=== PATIENT | female | born 2000 | race Caucasian/White ===

== ENCOUNTER 2021-07-05 20:55 | Outpatient (CLI) | payer OTHER, SELFPAY ==
[2021-07-05 21:00] VITALS: BP 108/67; PULSE 78; RESP 18; TEMP 36.9; O2SAT 100; BMI 25.7
[2021-07-05 21:22] LABS: Microscopic, Urine URINE MICROSCOPIC (MICROSCOPIC)
[2021-07-05 21:26] LABS: Appearance,Urine CLEAR (Clear); Bilirubin,Urine Negative (Negative); Blood, Urine Negative (Negative); Color,Urine YELLOW (Yellow); Glucose,Urine (UA) Negative (Negative); Ketones,Urine TRACE (Negative); Leukocyte Esterase,Urine 3+ (Negative); Nitrate,Urine Negative (Negative); PH,Urine 7.5 (5.0-8.5); Protein,Urine Negative (Negative); Urobilinogen,Urine 0.2 EU/dl (0.2)
[2021-07-05 21:34] LABS: Fetal Membrane Rupture (Rapid) Negative (Negative)
[2021-07-05 21:41] LABS: Amphetamine/Metha Screen,Urine Negative ng/ml (<1000); Benzodiazepines Screen,Urine Negative ng/ml (<200)
[2021-07-05 21:42] LABS: Barbiturates Screen,Urine Negative ng/ml (<200)
[2021-07-05 21:45] LABS: Cannabinoid Screen,Urine Negative ng/ml (<50)
[2021-07-05 21:46] LABS: Cocaine Screen,Urine Negative ng/ml (<300); Methadone Screen,Urine Negative ng/ml (<300)
[2021-07-05 21:49] LABS: Opiate Screen,Urine Negative ng/ml (<300); Phencyclidine Screen,Urine Negative ng/ml (<25)
[2021-07-05 21:50] LABS: Amorphous Sediment,Urine 1+ /lpf; Bacteria,Urine 1+ /lpf; Mucus,Urine 1+ /lpf; WBC,Urine 20-50 #/hpf (0-3)
== END 2021-07-05 22:20 | disposition home or self-care (01) ==
LOC: OBOUT 20:57 → OB 20:58
PROVIDERS: PCP Obstetrics & Gynecology; Visit Provider Nurse Practitioner Obstetrics & Gynecology
DX: O47.03 False labor before 37 completed weeks of gestation, third trimester (principal); Z3A.36 36 weeks gestation of pregnancy
CPT/HCPCS: 59025; 80305; 81001; 84112; 87086; 96360

== ENCOUNTER 2021-07-22 16:54 | Inpatient (IN) | payer OTHER, SELFPAY ==
[2021-07-22 15:25] VITALS: BMI 31.4
[2021-07-22 15:57] LABS: Coronavirus 19, PCR Not Detected (NotDetected); Influenza A, PCR Not Detected (NotDetected); Influenza B, PCR Not Detected (NotDetected)
[2021-07-22 16:00] LABS: Basophils # 0.1 K/mm3 (0-0.2); Eosinophils # 0.1 K/mm3 (0.0-0.4); Eosinophils % 0.7 % (0.1-12.0); Hematocrit 31.2 % (37.0-47.0); Hemoglobin 10.4 g/dL (12.2-16.2); Lymphocytes # 1.5 K/mm3 (0.7-4.5); Lymphocytes % 13.9 % (10-50); Mean Corpuscular HGB Conc 33.4 g/dL (31.8-35.4); Mean Corpuscular Hemoglobin 27.2 pg (27.0-31.2); Mean Corpuscular Volume 81.4 fl (81-99); Mean Platelet Volume 10.8 fl (7.4-10.4); Monocytes # 0.5 K/mm3 (0.1-1.0); Monocytes % 4.3 % (1.7-9.3); Neutrophils # 8.9 K/mm3 (1.8-7.8); Neutrophils % 80.1 % (37.0-80.0); Platelet Count 211 K/mm3 (142-424); Red Blood Count 3.83 M/mm3 (4.20-5.40); Red Cell Distribution Width 16.3 % (11.5-17.5); White Blood Count 11.1 K/mm3 (4.8-10.8)
[2021-07-22 16:23] LABS: Microscopic, Urine URINE MICROSCOPIC (MICROSCOPIC)
[2021-07-22 16:27] VITALS: BP 119/76; PULSE 93; RESP 18; TEMP 36.7; O2SAT 97; BMI 31.4
[2021-07-22 17:09] LABS: Appearance,Urine CLOUDY (Clear); Bilirubin,Urine Negative (Negative); Blood, Urine 3+ (Negative); Color,Urine YELLOW (Yellow); Glucose,Urine (UA) Negative (Negative); Ketones,Urine Negative (Negative); Leukocyte Esterase,Urine 3+ (Negative); Nitrate,Urine Negative (Negative); PH,Urine 7.5 (5.0-8.5); Protein,Urine Negative (Negative)
[2021-07-22 17:38] LABS: Amphetamine/Metha Screen,Urine Negative ng/ml (<1000); Barbiturates Screen,Urine Negative ng/ml (<200)
[2021-07-22 17:39] LABS: Benzodiazepines Screen,Urine Negative ng/ml (<200)
[2021-07-22 17:40] LABS: Cannabinoid Screen,Urine Negative ng/ml (<50); Cocaine Screen,Urine Negative ng/ml (<300)
[2021-07-22 17:41] LABS: Methadone Screen,Urine Negative ng/ml (<300); Opiate Screen,Urine Negative ng/ml (<300)
[2021-07-22 17:42] LABS: Phencyclidine Screen,Urine Negative ng/ml (<25)
[2021-07-22 17:47] LABS: Bacteria,Urine 2+ /lpf; WBC,Urine TNTC #/hpf (0-3)
--- NOTE | 2021-07-22 17:49 | HMH.ANESCL ---
[facility] Anesthesia Checklist - Patient Identification Patient Identification: Arm Band - Structural Data Admitted From: Home Planned Operative Procedure/s: Labor epidural Consent for Planned Operative Procedure(s) Verified: Yes - NPO Status Verified Time NPO: 00:00 - Airway Assessment C-Spine Mobility Assessed: Yes TMJ Mobility Assessed: Yes Dentition: Good Dentition - Neurological Assessment Level of Consciousness: Awake Hx Seizures: No Numbness or tingling in extremities: No - Anesthesia Plan Anesthesia Risk discussed: Yes Anesthesia Plan: Verified ASA Class: I Anesthesia Type: Epidural [facility] History I have reviewed the patient's past medical history: Yes *Have you ever received a pneumonia vaccine?: No *Have you received a flu vaccine this season?: Yes Anesthesia experience/problems:: None Other Surgeries: No: - *Social History Smoking Status: Never smoker Alcohol Intake: never Substance Use Type: denies use *Occupational Status:: unemployed *Travel in the last 8 weeks: None Family Hx:: Unable to obtain Para: 1
--- NOTE | 2021-07-22 18:47 | HMH.HP ---
*Admission Date: 07/22/21 *Chief complaint: active labor *History of present illness: This 21-year-old 2, para 1, Ab0 white female had care in [facility] and was in the local area at 38-5/7 weeks when she began having regular contractions and a 'bloody show.' She presented to labor and delivery where her records from [facility] were obtained. Her first resulted in a full-term vaginal delivery without complications. This has also been without complications. Her toxicology screen is negative. Her Covid screen is also negative, although she has not been vaccinated. On admission her contractions were mild but regular. Her cervix was 5 cm, completely effaced, with the presenting vertex at -2 station. She stated that her last exam was reported at 2 cm. She has been admitted. Her admission labs are all normal. [facility] History Medical History: Denies:: Seizures *Have you ever received a pneumonia vaccine?: No *Have you received a flu vaccine this season?: Yes Anesthesia experience/problems:: None Other Surgeries: Yes: No Previous Surgery (None). 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 (1 normal spontaneous vaginal delivery) Para: 1 Review of Systems - Review of Systems Review of systems:: pertinent systems reviewed and negative unless documented below (All normal) Meds Allergies Allergy/AdvReac Type Severity Reaction Status Date / Time No Known Allergies Allergy Verified 07/05/21 21:02 Exam Vital signs and Labs for Last 24 Hours: Temp Pulse Resp BP Pulse Ox 98.0 F 93 H 18 119/76 97 07/22/21 16:27 07/22/21 16:27 07/22/21 16:27 07/22/21 16:27 07/22/21 16:27 Laboratory Results - last 24 hr 07/22/21 11:20: Urine Color Yellow, Urine Appearance Cloudy, Urine pH 7.5, Ur Specific [place] 1.010, Urine Protein Negative, Urine Glucose (UA) Negative, Urine Ketones Negative, Urine Blood 3+, Urine Nitrate Negative, Urine Bilirubin Negative, Urine Urobilinogen 1.0, Ur Leukocyte Esterase 3+ A, Urine RBC 5-10, Urine WBC Tntc, Ur Squamous Epith Cells 10-20, Urine Bacteria 2+ 07/22/21 11:20: Urine Opiates Screen Negative, Urine Methadone Screen Negative, Ur Barbituates Screen Negative, Ur Phencyclidine Scrn Negative, Ur Amphetamines Screen Negative, U Benzodiazepines Scrn Negative, Urine Cocaine Screen Negative, U Marijuana (THC) Screen Negative 07/22/21 15:50: WBC 11.1 H, RBC 3.83 L, Hgb 10.4 L, Hct 31.2 L, MCV 81.4, MCH 27.2, MCHC 33.4, RDW 16.3, Plt Count 211, MPV 10.8 H, Neut % (Auto) 80.1 H, Lymph % (Auto) 13.9, [place] % (Auto) 4.3, Eos % (Auto) 0.7, Baso % (Auto) 1.0, Neut # (Auto) 8.9 H, Lymph # (Auto) 1.5, [place] # (Auto) 0.5, Eos # (Auto) 0.1, Baso # (Auto) 0.1 07/22/21 15:50: SARS-CoV-2 (PCR) Not detected, Influenza A Untype (PCR) Not detected, Influenza Type B (PCR) Not detected I & O for Last 24 hours: Intake & Output 07/20/21 07/21/21 07/22/21 07/23/21 11:59 11:59 11:59 11:59 Weight 140 lb - *Routine HEENT Exam Head: Present: normocephalic Eye: Present: EOMI ENT: Present: mucous membranes moist (Normal) - *Routine Respiratory Exam Present: accessory muscle use, CTA bilaterally - *Routine Cardiovascular Exam Present: RRR - *Routine Abdominal Exam Present: soft, normoactive bowel sounds. Absent: tenderness - *Routine Rectal Exam Rectal:: normal sphincter tone - *Routine Genitalia Exam Genitalia:: normal female, deferred Comment:: Cervix 5 cm, completely effaced, presenting vertex at -2 station. Bag of water intact. - *Routine Extremities Exam Absent: cyanosis, clubbing, edema - *Routine Skin Exam Present: warm. Absent: rash - *Routine Neurological Exam Present: alert, oriented X3, normal reflexes
--- NOTE | 2021-07-22 18:59 | P.PN_ITS ---
Internal Medicine - PN: Subj *Date: 07/22/21 *Time: 18:59 (Epidural is now in situ. Cervix is 7 cm, completely effaced, p resenting vertex at -2 station. Amniotomy revealed minimal fluid, and an internal monitor has been placed. The fetus appears to be doing well. IV Pitocin augmentation will be begun. Vaginal delivery anticipated.) Exam Vital signs and Labs for Last 24 Hours: Temp Pulse Resp BP Pulse Ox 98.0 F 93 H 18 119/76 97 07/22/21 16:27 07/22/21 16:27 07/22/21 16:27 07/22/21 16:27 07/22/21 16:27 Laboratory Results - last 24 hr 07/22/21 11:20: Urine Color Yellow, Urine Appearance Cloudy, Urine pH 7.5, Ur Specific [place] 1.010, Urine Protein Negative, Urine Glucose (UA) Negative, Urine Ketones Negative, Urine Blood 3+, Urine Nitrate Negative, Urine Bilirubin Negative, Urine Urobilinogen 1.0, Ur Leukocyte Esterase 3+ A, Urine RBC 5-10, Urine WBC Tntc, Ur Squamous Epith Cells 10-20, Urine Bacteria 2+ 07/22/21 11:20: Urine Opiates Screen Negative, Urine Methadone Screen Negative, Ur Barbituates Screen Negative, Ur Phencyclidine Scrn Negative, Ur Amphetamines Screen Negative, U Benzodiazepines Scrn Negative, Urine Cocaine Screen Negative, U Marijuana (THC) Screen Negative 07/22/21 15:50: WBC 11.1 H, RBC 3.83 L, Hgb 10.4 L, Hct 31.2 L, MCV 81.4, MCH 27.2, MCHC 33.4, RDW 16.3, Plt Count 211, MPV 10.8 H, Neut % (Auto) 80.1 H, Lymph % (Auto) 13.9, [place] % (Auto) 4.3, Eos % (Auto) 0.7, Baso % (Auto) 1.0, Neut # (Auto) 8.9 H, Lymph # (Auto) 1.5, [place] # (Auto) 0.5, Eos # (Auto) 0.1, Baso # (Auto) 0.1 07/22/21 15:50: SARS-CoV-2 (PCR) Not detected, Influenza A Untype (PCR) Not detected, Influenza Type B (PCR) Not detected 07/22/21 15:50: Blood Type B Positive, Antibody Screen Negative I & O for Last 24 hours: Intake & Output 07/20/21 07/21/21 07/22/21 07/23/21 11:59 11:59 11:59 11:59 Weight 140 lb Assessment and Plan (1) Status: Acute Category: Medical Code(s): Z34.90 - Encounter for supervision of normal , unspecified, unspecified trimester
[2021-07-22 19:31] VITALS: BP 125/74; PULSE 91; RESP 17; TEMP 36.8; O2SAT 99
[2021-07-22 20:49] VITALS: BP 132/73; PULSE 81; RESP 18; TEMP 36.8; O2SAT 99
--- NOTE | 2021-07-22 22:16 | HMH.DN ---
- Delivery Note Delivery Date:: 07/22/21 Delivery Time:: 22:09 Anesthesia Type: Epidural Was labor medically induced?: Yes Induction method: per pitocin protocol Gestational age (weeks): 38 (38 5/7 weeks presented in active labor) delivered prior to 39 weeks?: Yes Justification for early elective delivery:: Active Labor Gender: Male at 1 minute: 9 at 5 minutes: 9 Suction Catheter Type: Julian AF:: clear Delivery Procedure:: This 21-year-old 2, now para 2, Ab0 white female who had care in [facility] presented to labor and delivery in active labor at 38-5/7 weeks. At the time of admission her cervix was 5 cm dilated. She received a labor epidural, and was ultimately augmented with intravenous Pitocin. An amniotomy revealed a small amount of clear fluid, and an internal monitor was applied. She went steadily to completion and delivered spontaneously, without an episiotomy, at 2209. There was no nuchal cord, nor was there any meconium. The baby's nasal and oropharynx were bulb suctioned, and the baby cried spontaneously on the perineum, as was delivered. The cord was clamped and cut, 3 vessels were noted to be within the cord, and cord blood was obtained. The baby was handed into the arms of the attending RN, who assigned Apgars of 9 at 1 minute and 9 at 5 minutes to this male , weight in length pending. The placenta delivered spontaneously, intact, at 2211. The uterus was inspected, and was felt to be clean, and was involuting well, with IV Pitocin running. There were no lacerations. The rectovaginal septum was intact at the close of the procedure. The sponge and needle count was correct. The estimated blood loss was 350 cc. The patient tolerated the procedure well, and is recovering in good condition. Her blood type is Rh+. Rubella titer is immune. She plans to breast-feed. Placental Delivery Description: Spontaneous (intact)
[2021-07-22 23:31] VITALS: BP 120/77; PULSE 103; RESP 17; TEMP 37; O2SAT 99
[2021-07-23 04:01] VITALS: BP 138/78; PULSE 90; RESP 18; TEMP 36.9; O2SAT 99
[2021-07-23 08:00] VITALS: BP 111/68; PULSE 86; RESP 18; TEMP 37.2; O2SAT 99
[2021-07-23 08:57] LABS: Hematocrit 27.9 % (37.0-47.0)
[2021-07-23 09:08] LABS: Hemoglobin 9.1 g/dL (12.2-16.2)
--- NOTE | 2021-07-23 10:35 | HMH.ACPN2 ---
Internal Medicine - PN: Subj *Date: 07/23/21 *Time: 10:35 (This is day #1. The patient is afebrile. Vital signs stable. Abdomen soft. Lochia normal. Uterine fundus involuting well. Breast-feeding well. Hemoglobin 9.1 g, but clinically stable. Impression: Stable.) Exam Vital signs and Labs for Last 24 Hours: Temp Pulse Resp BP Pulse Ox 98.5 F 90 18 138/78 99 07/23/21 04:01 07/23/21 04:01 07/23/21 04:01 07/23/21 04:01 07/23/21 04:01 Laboratory Results - last 24 hr 07/22/21 11:20: Urine Color Yellow, Urine Appearance Cloudy, Urine pH 7.5, Ur Specific [place] 1.010, Urine Protein Negative, Urine Glucose (UA) Negative, Urine Ketones Negative, Urine Blood 3+, Urine Nitrate Negative, Urine Bilirubin Negative, Urine Urobilinogen 1.0, Ur Leukocyte Esterase 3+ A, Urine RBC 5-10, Urine WBC Tntc, Ur Squamous Epith Cells 10-20, Urine Bacteria 2+ 07/22/21 11:20: Urine Opiates Screen Negative, Urine Methadone Screen Negative, Ur Barbituates Screen Negative, Ur Phencyclidine Scrn Negative, Ur Amphetamines Screen Negative, U Benzodiazepines Scrn Negative, Urine Cocaine Screen Negative, U Marijuana (THC) Screen Negative 07/22/21 15:50: WBC 11.1 H, RBC 3.83 L, Hgb 10.4 L, Hct 31.2 L, MCV 81.4, MCH 27.2, MCHC 33.4, RDW 16.3, Plt Count 211, MPV 10.8 H, Neut % (Auto) 80.1 H, Lymph % (Auto) 13.9, [place] % (Auto) 4.3, Eos % (Auto) 0.7, Baso % (Auto) 1.0, Neut # (Auto) 8.9 H, Lymph # (Auto) 1.5, [place] # (Auto) 0.5, Eos # (Auto) 0.1, Baso # (Auto) 0.1 07/22/21 15:50: SARS-CoV-2 (PCR) Not detected, Influenza A Untype (PCR) Not detected, Influenza Type B (PCR) Not detected 07/22/21 15:50: Blood Type B Positive, Antibody Screen Negative 07/23/21 08:13: Hgb 9.1 L D, Hct 27.9 L I & O for Last 24 hours: Intake & Output 07/20/21 07/21/21 07/22/21 07/23/21 11:59 11:59 11:59 11:59 Weight 140 lb Microbiology Reports for the Last 24 Hours: Microbiology 07/22/21 11:20 Urine,Clean Catch Urine Culture - Preliminary Assessment and Plan (1) Status: Acute Category: Medical Code(s): Z34.90 - Encounter for supervision of normal , unspecified, unspecified trimester
[2021-07-23 16:10] VITALS: BP 113/57; PULSE 90; RESP 20; TEMP 37.2; O2SAT 99
[2021-07-24 03:50] VITALS: BP 114/79; PULSE 72; RESP 18; TEMP 36.8; O2SAT 100
--- NOTE | 2021-07-24 08:37 | HMH.OBDCSM ---
General - General Admission date:: 07/22/21 Discharge date: 07/24/21 HPI - History of Present Illness History of present illness: She is a 21-year-old 2 para 1 at 38 and 5 weeks gestational age. She came in in active labor. Hospital Course Hospital Course: She is a 21-year-old 2 para 1 at 38 and 5 weeks gestational age. She has been followed in [facility] [place]. She lives here in town. She arrived in active labor and progressed to full dilation. She delivered spontaneously a liveborn male child at 10:09 PM in the evening of July 22, 2021. The baby weighed 6 pounds 11 ounces and was 18-1/2 inches long. He had Apgars of 9 at 1 minute and 9 at 5 minutes. She is breast-feeding. She has been positive blood, she is rubella immune and was group B streptococcus negative. Her hairspring vibrator is Dr. Lees. She is discharged home to follow-up with me in approximately 2 weeks time. She will continue with her vitamins and iron. She was given the usual instructions with respect to limiting her activity, driving and sexual activity. Her condition on discharge is stable and improved. Rhogam Administration: Not Indicated Objective Vital signs: Temp Pulse Resp BP Pulse Ox 98.3 F 72 18 114/79 100 07/24/21 03:50 07/24/21 03:50 07/24/21 03:50 07/24/21 03:50 07/24/21 03:50 no acute distress - *Routine HEENT Exam Head: Present: normocephalic Eye: Present: EOMI, PERRL ENT: Present: mucous membranes moist Results Labs on day of discharge: Labs from last 24 hours 07/23/21 08:13 Hgb 9.1 L D Hct 27.9 L Preliminary micro results at discharge 07/22/21 11:20 Urine Culture - Preliminary Urine,Clean Catch DS: Diagnosis - Discharge Diagnosis (1) Status: Acute (2) Normal delivery at term Status: Acute Discharge Plan - Patient Discharge Instructions ACTIVITY: No heavy lifting DIET: continue same diet Additional Instructions: *Nothing in the vagina for 6 weeks* *No heavy lifting* *No strenuous activity* Patient Instructions: Depression, Hemorrhage, DI for Labor and Delivery, Vaginal , DI for Pre-eclampsia, [facility] Post Discharge Instructions, Preventing the Spread of Coronavirus Discharge Instructions - Follow up Plan Disposition: Home, Self-Care Condition at discharge:: Stable Home Medications: Home Medications Medication Instructions Recorded Confirmed Type Pnv,Calcium 72/Iron/Folic Acid 1 tab PO DAILY 07/23/21 07/23/21 History [ Vitamin Plus Low Iron] Ferrous Sulfate [Ferosul] 325 mg PO BID 07/24/21 07/24/21 History Folic Acid [Folic Acid 1mg tablet] 1 mg PO DAILY 07/24/21 07/24/21 History Prescriptions/Medication Reconciliation: Continued Pnv,Calcium 72/Iron/Folic Acid [ Vitamin Plus Low Iron] 1 tab PO DAILY Folic Acid [Folic Acid 1mg tablet] 1 mg PO DAILY Ferrous Sulfate [Ferosul] 325 mg PO BID - Problem Reconciliation Problems Reviewed?: Yes
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
== END 2021-07-24 19:06 | disposition home or self-care (01) | DRG 807 ==
LOC: COVID.OUT 16:54 → OB 16:54
PROVIDERS: Admitting Provider Obstetrics & Gynecology; PCP Obstetrics & Gynecology; Visit Provider Obstetrics & Gynecology
DX: O80 Encounter for full-term uncomplicated delivery (principal); Z37.0 Single live birth; Z3A.38 38 weeks gestation of pregnancy
CPT/HCPCS: 59409; 59025; 80305; 81001; 85014; 85018; 85025; 86850; 87086; 94761; C1758; C9803; G0283; U0003; U0005

== ENCOUNTER → 2022-04-09 06:23 | Outpatient (CLI) | payer OTHER, SELFPAY | PROVIDERS: Visit Provider Obstetrics & Gynecology | DX: Z34.90 Encounter for supervision of normal pregnancy, unspecified, unspecified trimester (principal) | CPT/HCPCS: 87086 ==

== ENCOUNTER → 2022-04-13 13:29 | Outpatient (CLI) | payer OTHER, SELFPAY ==
--- NOTE | 2022-04-13 13:32 | US_ITS ---
FINAL REPORT CLINICAL HISTORY: 20 weeks anatomy scan FINDINGS: There is a single live intrauterine gestation. Presentation is cephalic. The cervix is closed and measures 0.6 cm. Placenta is anterior grade 1. movement is noted. Heart rate is detected at 139 beats per minute. Three-vessel cord with satisfactory umbilical cord insertion. Four-chamber heart is noted. Diaphragm are unremarkable. ABDOMEN: Both kidneys are unremarkable. Stomach is unremarkable. SPINE: No anomalies identified. AMNIOTIC FLUID: Appropriate amount. MEASUREMENTS: ULTRASOUND AGE: 25 weeks 0 days. GESTATION AGE: 21 weeks 3 days. ESTIMATED WEIGHT: 771 g GROWTH PERCENTILE: 44 % BPD: 6.05 cm corresponds to 24 weeks 5 days. OFD: 8.01 cm corresponds to 25 week 1 day. HC: 22.30 cm corresponds to 24 weeks 3 days. AC: 20.95 cm corresponds to 25 weeks 4 days. FL: 4.50 cm corresponds to 25 weeks 0 days. CEREBELLUM: 2.77 cm corresponds to 26 weeks 3 days. HUMERUS: 4.12 cm corresponds to 25 weeks 0 days. HC/AC: 1.06 CI: 76% FL/BPD: 74% FL/AC: 21% IMPRESSION: Single living IUP with an ultrasound age of 25 weeks 0 days. Reviewed, Interpreted and Dictated by Frederic Bailey III, MD Transcribed by Lauren Mccarthy Authenticated and . [facility]
== END ==
PROVIDERS: Visit Provider Obstetrics & Gynecology
DX: Z34.90 Encounter for supervision of normal pregnancy, unspecified, unspecified trimester (principal); Z3A.20 20 weeks gestation of pregnancy
CPT/HCPCS: 76811

== ENCOUNTER → 2022-05-15 14:32 | Outpatient (CLI) | payer OTHER, SELFPAY ==
[2022-05-15 16:22] LABS: Basophils % 0.4 % (0.1-2.0); Eosinophils # 0.1 K/mm3 (0.0-0.4); Eosinophils % 1.3 % (0.1-12.0); Hematocrit 29.2 % (37.0-47.0); Hemoglobin 10.1 g/dL (12.2-16.2); Lymphocytes # 1.8 K/mm3 (0.7-4.5); Lymphocytes % 19.5 % (10-50); Mean Corpuscular HGB Conc 34.6 g/dL (31.8-35.4); Mean Corpuscular Volume 86.9 fl (81-99); Mean Platelet Volume 9.5 fl (7.4-10.4); Monocytes # 0.4 K/mm3 (0.1-1.0); Monocytes % 4.7 % (1.7-9.3); Neutrophils # 6.8 K/mm3 (1.8-7.8); Neutrophils % 74.1 % (37.0-80.0); Platelet Count 221 K/mm3 (142-424); Red Blood Count 3.36 M/mm3 (4.20-5.40); Red Cell Distribution Width 14.3 % (11.5-17.5); White Blood Count 9.2 K/mm3 (4.8-10.8)
[2022-05-17 08:32] LABS: Hepatitis B Surface Antigen Negative (Negative); Hepatitis C Antibody <0.1 s/co ratio (0.0-0.9)
[2022-05-17 09:22] LABS: HIV Screen 4th Generation wRfx Non Reactive (Non Reactive)
[2022-05-17 12:09] LABS: Rapid Plasma Reagin Ab Titer Non Reactive (NonRea<1:1)
== END ==
PROVIDERS: Visit Provider Obstetrics & Gynecology
DX: Z34.90 Encounter for supervision of normal pregnancy, unspecified, unspecified trimester (principal); Z3A.26 26 weeks gestation of pregnancy
CPT/HCPCS: 36415; 85025; 86592; 86703; 86762; 86850; 87340; 87380; G0432

== ENCOUNTER 2022-06-13 02:24 | Outpatient (CLI) | payer OTHER, SELFPAY ==
[2022-06-13 02:42] VITALS: BMI 30.2
[2022-06-13 02:50] VITALS: BP 109/71; PULSE 105; RESP 19; TEMP 36.7; O2SAT 100; BMI 30.2
[2022-06-13 02:54] LABS: Appearance,Urine CLEAR (Clear); Bilirubin,Urine Negative (Negative); Blood, Urine Negative (Negative); Color,Urine YELLOW (Yellow); Glucose,Urine (UA) Negative (Negative); Ketones,Urine Negative (Negative); Leukocyte Esterase,Urine 1+ (Negative); Microscopic, Urine URINE MICROSCOPIC (MICROSCOPIC); Nitrate,Urine Negative (Negative); Protein,Urine Negative (Negative); Specific Gravity, Urine 1.015 (1.005-1.030)
[2022-06-13 03:05] LABS: Bacteria,Urine 2+ /lpf; Mucus,Urine 1+ /lpf
[2022-06-13 03:07] LABS: Amphetamine/Metha Screen,Urine Negative ng/ml (<1000); Barbiturates Screen,Urine Negative ng/ml (<200)
[2022-06-13 03:08] LABS: Benzodiazepines Screen,Urine Negative ng/ml (<200)
[2022-06-13 03:09] LABS: Cannabinoid Screen,Urine Negative ng/ml (<50); Cocaine Screen,Urine Negative ng/ml (<300)
[2022-06-13 03:10] LABS: Methadone Screen,Urine Negative ng/ml (<300)
[2022-06-13 03:11] LABS: Opiate Screen,Urine Negative ng/ml (<300); Phencyclidine Screen,Urine Negative ng/ml (<25)
== END 2022-06-13 10:14 | disposition home or self-care (01) ==
LOC: OBOUT 02:26 → OB 02:26
PROVIDERS: Referring Provider Obstetrics & Gynecology; Visit Provider Nurse Practitioner Obstetrics & Gynecology
DX: O47.03 False labor before 37 completed weeks of gestation, third trimester (principal); O36.8190 Decreased fetal movements, unspecified trimester, not applicable or unspecified; Z3A.33 33 weeks gestation of pregnancy
CPT/HCPCS: 59025; 80305; 81001; 87086; 94761; 96365; 96367; 96372; G0283; G0463; J2405

== ENCOUNTER 2022-06-20 21:43 | Outpatient (CLI) | payer OTHER, SELFPAY ==
[2022-06-20 22:51] VITALS: BMI 26.4
[2022-06-20 22:54] VITALS: BP 99/60; PULSE 88; RESP 18; TEMP 36.7; O2SAT 98; BMI 26.4
[2022-06-20 23:10] LABS: Microscopic, Urine URINE MICROSCOPIC (MICROSCOPIC)
[2022-06-20 23:11] LABS: Appearance,Urine CLEAR (Clear); Blood, Urine Negative (Negative); Color,Urine DK YELLOW (Yellow); Glucose,Urine (UA) Negative (Negative); Ketones,Urine 2+ (Negative); Leukocyte Esterase,Urine TRACE (Negative); Nitrate,Urine Negative (Negative); Protein,Urine TRACE (Negative)
[2022-06-20 23:16] LABS: Bilirubin,Urine 2+ (Negative)
[2022-06-20 23:30] LABS: Barbiturates Screen,Urine Negative ng/ml (<200)
[2022-06-20 23:31] LABS: Benzodiazepines Screen,Urine Negative ng/ml (<200)
[2022-06-20 23:32] LABS: Amphetamine/Metha Screen,Urine Negative ng/ml (<1000); Cannabinoid Screen,Urine Negative ng/ml (<50)
[2022-06-20 23:33] LABS: Cocaine Screen,Urine Negative ng/ml (<300)
[2022-06-20 23:34] LABS: Methadone Screen,Urine Negative ng/ml (<300); Opiate Screen,Urine Negative ng/ml (<300)
[2022-06-20 23:35] LABS: Phencyclidine Screen,Urine Negative ng/ml (<25)
[2022-06-20 23:44] LABS: Bacteria,Urine Trace /lpf; RBC,Urine Occasional #/hpf (0-3); Squamous Epithelial Cell,Urine Occasional #/hpf (0-5)
[2022-06-20 23:45] LABS: Mucus,Urine 4+ /lpf
== END 2022-06-21 00:37 | disposition home or self-care (01) ==
LOC: OBOUT 21:43 → OB 21:44
PROVIDERS: Visit Provider Obstetrics & Gynecology
DX: O47.03 False labor before 37 completed weeks of gestation, third trimester (principal); Z3A.34 34 weeks gestation of pregnancy
CPT/HCPCS: 59025; 80305; 81001; 96365; 96372; G0463

== ENCOUNTER 2022-07-07 13:44 | Outpatient (CLI) | payer OTHER, SELFPAY ==
[2022-07-07 13:52] VITALS: BMI 26.4
[2022-07-07 14:19] LABS: Microscopic, Urine URINE MICROSCOPIC (MICROSCOPIC)
[2022-07-07 14:26] VITALS: BP 107/61; PULSE 93; RESP 18; TEMP 36.7; O2SAT 98; BMI 26.5
[2022-07-07 14:34] LABS: Fetal Membrane Rupture (Rapid) Negative (Negative)
[2022-07-07 14:36] LABS: Barbiturates Screen,Urine Negative ng/ml (<200); Benzodiazepines Screen,Urine Negative ng/ml (<200)
[2022-07-07 14:37] LABS: Amphetamine/Metha Screen,Urine Negative ng/ml (<1000)
[2022-07-07 14:38] LABS: Appearance,Urine SL CLOUDY (Clear); Bilirubin,Urine Negative (Negative); Blood, Urine Negative (Negative); Cannabinoid Screen,Urine Negative ng/ml (<50); Color,Urine YELLOW (Yellow); Glucose,Urine (UA) Negative (Negative); Ketones,Urine Negative (Negative); Leukocyte Esterase,Urine 3+ (Negative); Nitrate,Urine Negative (Negative); Protein,Urine Negative (Negative); Specific Gravity, Urine 1.015 (1.005-1.030)
[2022-07-07 14:39] LABS: Cocaine Screen,Urine Negative ng/ml (<300); Methadone Screen,Urine Negative ng/ml (<300)
[2022-07-07 14:40] LABS: Opiate Screen,Urine Negative ng/ml (<300)
[2022-07-07 14:41] LABS: Phencyclidine Screen,Urine Negative ng/ml (<25)
[2022-07-07 14:59] LABS: Amorphous Sediment,Urine Trace /lpf; Bacteria,Urine 4+ /lpf; WBC,Urine 20-50 #/hpf (0-3)
== END 2022-07-07 15:20 | disposition home or self-care (01) ==
LOC: OBOUT 13:47 → OB 13:48
PROVIDERS: Obstetrics & Gynecology; Visit Provider Obstetrics & Gynecology
DX: O26.899 Other specified pregnancy related conditions, unspecified trimester (principal); O26.859 Spotting complicating pregnancy, unspecified trimester; Z3A.37 37 weeks gestation of pregnancy
CPT/HCPCS: 59025; 80305; 81001; 84112; 87086; G0463

== ENCOUNTER 2022-07-12 15:02 | Inpatient (IN) | payer OTHER, SELFPAY ==
[2022-07-12 15:05] VITALS: BP 102/68; PULSE 107; RESP 17; TEMP 36.4; O2SAT 98; BMI 26.5
[2022-07-12 15:11] VITALS: BMI 26.4
[2022-07-12 16:01] LABS: Coronavirus 19, PCR Not Detected (NotDetected); Influenza A, PCR Not Detected (NotDetected); Influenza B, PCR Not Detected (NotDetected)
[2022-07-12 16:06] LABS: Basophils # 0.1 K/mm3 (0-0.2); Basophils % 1.3 % (0.1-2.0); Eosinophils # 0.1 K/mm3 (0.0-0.4); Eosinophils % 1.1 % (0.1-12.0); Hematocrit 31.8 % (37.0-47.0); Hemoglobin 10.2 g/dL (12.2-16.2); Lymphocytes # 2.3 K/mm3 (0.7-4.5); Mean Corpuscular HGB Conc 31.9 g/dL (31.8-35.4); Mean Corpuscular Hemoglobin 26.7 pg (27.0-31.2); Mean Corpuscular Volume 83.5 fl (81-99); Mean Platelet Volume 10.2 fl (7.4-10.4); Monocytes # 0.6 K/mm3 (0.1-1.0); Monocytes % 6.1 % (1.7-9.3); Neutrophils # 6.7 K/mm3 (1.8-7.8); Neutrophils % 68.5 % (37.0-80.0); Platelet Count 279 K/mm3 (142-424); Red Blood Count 3.81 M/mm3 (4.20-5.40); Red Cell Distribution Width 15.7 % (11.5-17.5); White Blood Count 9.8 K/mm3 (4.8-10.8)
[2022-07-12 16:41] LABS: Microscopic, Urine URINE MICROSCOPIC (MICROSCOPIC)
[2022-07-12 16:53] LABS: Appearance,Urine SL CLOUDY (Clear); Blood, Urine TRACE-L (Negative); Color,Urine ORANGE (Yellow); Glucose,Urine (UA) Negative (Negative); Ketones,Urine TRACE (Negative); Leukocyte Esterase,Urine 1+ (Negative); Nitrate,Urine Negative (Negative); PH,Urine 6.5 (5.0-8.5); Protein,Urine 1+ (Negative); Specific Gravity, Urine >= 1.030 (1.005-1.030)
[2022-07-12 16:54] LABS: Bilirubin,Urine 1+ (Negative)
[2022-07-12 16:59] LABS: Amphetamine/Metha Screen,Urine Negative ng/ml (<1000); Barbiturates Screen,Urine Negative ng/ml (<200)
[2022-07-12 17:00] LABS: Benzodiazepines Screen,Urine Negative ng/ml (<200)
[2022-07-12 17:01] LABS: Cannabinoid Screen,Urine Negative ng/ml (<50); Cocaine Screen,Urine Negative ng/ml (<300)
[2022-07-12 17:02] LABS: Methadone Screen,Urine Negative ng/ml (<300); Opiate Screen,Urine Negative ng/ml (<300)
[2022-07-12 17:03] LABS: Phencyclidine Screen,Urine Negative ng/ml (<25)
[2022-07-12 17:07] LABS: Bacteria,Urine 2+ /lpf; RBC,Urine Occasional #/hpf (0-3); Squamous Epithelial Cell,Urine Occasional #/hpf (0-5)
--- NOTE | 2022-07-13 08:00 | EXP.HP ---
History of Present Illness *Admission Date: 07/12/22 *Reason for visit:: Labor induction *History of present illness: 22 yo @ 38 0/7 Scant care at [facility], with long gaps between appointments due to transportation problems testing was incomplete, with no testing for gestational diabetes or maternal GBS Follow up appointment after 7 weeks without being seen occurred on 07/12/22 Fundal height was very low and ultrasound measurements showed fetus measuring 3 weeks behind She was admitted for induction of labor, with favorable cervix Because maternal GBS culture was performed on the day of admission, she will be treated with empiric antibiotics for GBS prophylaxis [facility] Medical History (Reviewed 07/12/22 @ 14: by ARTIE Mayo) No significant past medical history Family History (Reviewed 07/12/22 @ : by ARTIE Mayo) Other No significant family history Social History (Reviewed 07/12/22 @ : by ARTIE Mayo) Smoking Status: Never smoker alcohol intake: never substance use type: denies use current occupational status: unemployed Travel in the last 8 weeks: None do you feel safe at home: Yes victim of physical abuse: No victim of emotional abuse: No victim of sexual abuse: No would you like helpful sources: No Review of Systems Constitutional Constitutional: Reports system reviewed and no additional complaints, except as documented and Denies headache(s) ENT Ears, Nose, Mouth, and Throat: Denies headache(s) *Genitourinary Genitourinary: Denies abnormal vaginal bleeding *Neurologic Neurologic: Denies headache(s) and Denies other visual disturbances Meds Home Medications and Allergies Home Medications Medication Instructions Recorded Confirmed Type ferrous sulfate 325 mg (65 mg 325 mg PO BID iron supplement 07/24/21 07/12/22 History iron) tablet vitamin with calcium 1 tab PO DAILY Supplement #90 tabs 04/26/22 07/12/22 Rx no.72-iron 27 mg-folic acid 1 mg tablet New Prescriptions to Start Prescriptions: Allergies Allergy/AdvReac Type Severity Reaction Status Date / Time No Known Allergies Allergy Verified 07/12/22 14:22 Exam Data for Last 24 hours Vital signs and Labs for Last 24 Hours: Temp Pulse Resp BP Pulse Ox 97.5 F L 107 H 17 102/68 L 98 07/12/22 15:05 07/12/22 15:05 07/12/22 15:05 07/12/22 15:05 07/12/22 15:05 Laboratory Results - last 24 hr 07/12/22 15:28: Urine Color [place], Urine Appearance Sl cloudy, Urine pH 6.5, Ur Specific [place] >= 1.030, Urine Protein 1+, Urine Glucose (UA) Negative, Urine Ketones Trace, Urine Blood Trace-l, Urine Nitrate Negative, Urine Bilirubin 1+ A, Urine Urobilinogen 2.0, Ur Leukocyte Esterase 1+ A, Urine RBC Occasional, Urine WBC 3-5, Ur Squamous Epith Cells Occasional, Urine Bacteria 2+ 07/12/22 15:28: Urine Opiates Screen Negative, Urine Methadone Screen Negative, Ur Barbituates Screen Negative, Ur Phencyclidine Scrn Negative, Ur Amphetamines Screen Negative, U Benzodiazepines Scrn Negative, Urine Cocaine Screen Negative, U Marijuana (THC) Screen Negative 07/12/22 15:36: SARS-CoV-2 (PCR) Not detected, Influenza A Untype (PCR) Not detected, Influenza Type B (PCR) Not detected 07/12/22 15:50: WBC 9.8, RBC 3.81 L, Hgb 10.2 L, Hct 31.8 L, MCV 83.5, MCH 26.7 L, MCHC 31.9, RDW 15.7, Plt Count 279, MPV 10.2, Neut % (Auto) 68.5, Lymph % (Auto) 23.0, [place] % (Auto) 6.1, Eos % (Auto) 1.1, Baso % (Auto) 1.3, Neut # (Auto) 6.7, Lymph # (Auto) 2.3, [place] # (Auto) 0.6, Eos # (Auto) 0.1, Baso # (Auto) 0.1 07/12/22 15:50: Blood Type B Positive, Antibody Screen Negative I & O for Last 24 hours: Intake & Output 07/11/22 07/12/22 07/13/22 07/14/22 11:59 11:59 11:59 11:59 Weight 118 lb Constitutional Constitutional: no acute distress *Routine HEENT Exam Head: Present normocephalic Eye: Absent conjunctival icterus or scleral injection ENT: Prese
--- NOTE | 2022-07-13 12:19 | EXP.ANES.CKL ---
[facility] Medical History No significant past medical history Family History Other No significant family history Social History Smoking Status: Never smoker alcohol intake: never substance use type: denies use current occupational status: unemployed Travel in the last 8 weeks: None do you feel safe at home: Yes victim of physical abuse: No victim of emotional abuse: No victim of sexual abuse: No would you like helpful sources: No [facility] Anesthesia Checklist Patient Identification Patient Identification: Arm Band and Verbal (Name & ) Structural Data Admitted From: Inpatient Planned Operative Procedure/s: RUDY Verified Documents: Surgical Consent NPO Status Verified Time NPO: 00:00 Chart Verification Results Verified: CBC Airway Assessment C-Spine Mobility Assessed: Yes TMJ Mobility Assessed: Yes Dentition: Good Dentition Neurological Assessment Level of Consciousness: Awake, Alert and Appropriate Anesthesia Plan Anesthesia Risk discussed: Yes ASA Class: II Anesthesia Type: Epidural
--- NOTE | 2022-07-13 13:44 | EXP.DN ---
Delivery Note Delivery Date:: 07/13/22 Delivery Time:: 12:32 Anesthesia Type: Epidural Was labor medically induced?: Yes Induction method: per pitocin protocol Gestational age (weeks): 38 delivered prior to 39 weeks?: Yes Justification for early elective delivery:: IUGR and Oligohydraminos Gender: Female at 1 minute: 7 at 5 minutes: 9 Delivery Procedure:: Spontaneous vaginal delivery of liveborn female over intact perineum. Delivery uncomplicated No nuchal cord No shoulder dystocia with delivery taken to warmer immediately after delivery, with standard nursing assessment performed Apgars: 7 & 9 Placenta spontaneously expressed and examined; noted to be complete/intact. Vulva, vagina, and cervix inspected; no lacerations identified EBL: 200 cc All sponge/needle/instrument counts correct at conclusion of procedure Infant placed in BERNABE following initial nursing assessment and oral/nasal suction Mother and stable to recovery Placental Delivery Description: Spontaneous
--- NOTE | 2022-07-13 15:29 | SW/DCPLANNER ---
I received a referral on this patient regarding limited care (total of five visits). Patient delivered female (Loan Mcfarland) on 07/13/2022. Infant's father (Shaye Montejo Jr 99) is involved but was not present at time of my visit. Patient, Shaye, infant, two other children (Shaye Mcfarland Jr 02/13/20 and Gene Mcfarland 07/22/21), mother in law Chanel Mcfarland and sister in law Raúl Mcfarland will reside at [address] [place] [address] in [place] [address]. Patient's contact number is [phone]. Patient stated that she has not had any past Social Service involvement with other children. Patient is currently established with [facility] and is not interested in HANDS program at this time. Patient stated that she has the following items at home: crib, carseat, clothing, diapers and will be bottle feeding. [employer] Car Clerk will be Dr Lees. Patient stated that limited care was due to transportation issues but states this is no longer an issues and will have transportation for appointments. Patient is expected to discharge home on Saturday07/15/22. I have discussed with patient's nurse (Ml) that if any future issues arise over the weekend to please report to Central Intake. Patient has no further needs at this time.
[2022-07-14 08:11] LABS: Hemoglobin 9.6 g/dL (12.2-16.2)
[2022-07-14 08:19] VITALS: BP 106/65; PULSE 68; RESP 17; TEMP 36.7; O2SAT 98
--- NOTE | 2022-07-14 11:52 | EXP.DC.SUM ---
General Admission date:: 07/12/22 Discharge date: 07/14/22 HPI HPI HPI: PPD # 1 s/p She is doing well. Pain controlled. She is formula feeding. Light lochia. She is tolerating regular diet. Voiding without difficulty. Passing flatus. Denies fever/chills, chest pain and shortness of breath. Denies headaches, dizziness. She denies signs/symptoms of blues. Hospital Course Hospital Course Hospital Course: Ms Ml Mac is a 22 yo @ 38 0 admitted to [facility] Labor and Delivery for scheduled induction of labor. She had very limited care at [facility], with long gaps between appointments due to transportation problems. testing was incomplete, with no testing for gestational diabetes or maternal GBS. Follow up appointment after 7 weeks without being seen occurred on 07/12/22. Fundal height was very low and ultrasound measurements showed fetus measuring 3 weeks behind She was admitted for induction of labor, with favorable cervix. Because maternal GBS culture was performed on the day of admission, she was treated with antibiotics for GBS prophylaxis. She underwent induction of labor with Pitocin on 07/13/22. She had a normal spontaneous vaginal delivery on 07/13/22 at 1232. She delivered a little girl, Loan. She weighed 7 lb 0z. APGARs 7 (1 min), 9 (5 min). EBL 200 mL. PPD # 1 she was doing well. Pain controlled. Light lochia. Formula feeding. Tolerating regular diet. Voiding without difficulty and passing flatus. Heart was regular rate and rhythm. Lungs were clear to auscultation. Abdomen soft, nontender, fundus firm and below umbilicus. Vital signs stable. No lower extremity edema or calf tenderness to palpation. Normal hospital course. 07/12/22: Hgb 10.2, Hct 31.8 07/14/22: Hgb 9.6, Hct 29.0 She is taking PO ferrous sulfate. Exam Data for Last 24 hours Vital signs and Labs for Last 24 Hours: Temp Pulse Resp BP Pulse Ox 98.0 F 68 17 106/65 L 98 07/14/22 08:19 07/14/22 08:19 07/14/22 08:19 07/14/22 08:19 07/14/22 08:19 Laboratory Results - last 24 hr 07/14/22 07:47: Hgb 9.6 L, Hct 29.0 L I & O for Last 24 hours: Intake & Output 07/11/22 07/12/22 07/13/22 07/14/22 23:59 23:59 23:59 23:59 Weight 118 lb Microbiology Reports for the Last 24 Hours: Microbiology 07/12/22 15:28 Urine,Clean Catch Urine Culture - Preliminary NO GROWTH AFTER 24 HOURS Constitutional Constitutional: no acute distress *Routine HEENT Exam Head: Present normocephalic Eye: Absent conjunctivae pink ENT: Present mucous membranes moist *Routine Neck Exam Neck: Present full ROM *Routine Respiratory Exam Respiratory: Present CTA bilaterally and normal respiratory effort *Routine Cardiovascular Exam Cardiovascular: Present RRR *Routine Abdominal Exam Abdominal: Present soft and normoactive bowel sounds; Absent tenderness or distended Comments: Uterine fundus firm and below umbilicus *Routine Rectal Exam Patient deferred: visual exam *Routine Exam Patient deferred: external exam *Routine Extremities Exam Extremities: Present full ROM; Absent edema or calf tenderness *Routine Neurological Exam Neurological: Present alert, oriented X3 and moving all extremities Routine Psychiatric Exam Psychiatric: Present normal affect and cooperative Results Data Completed and Pending Labs on day of discharge: Labs from last 24 hours 07/14/22 07:47 Hgb 9.6 L Hct 29.0 L Preliminary micro results at discharge 07/12/22 15:28 Urine Culture - Preliminary Urine,Clean Catch NO GROWTH AFTER 24 HOURS DS: Diagnosis Discharge Diagnosis (1) 38 weeks gestation of : Status: Acute (2) Late care: Status: Acute (3) Insufficient care: Status: Acute (4) Maternal care for other known or suspected poor growth, third trimester, not applicable or unspecified: Status: Acute (5) Andre
== END 2022-07-14 14:00 | disposition home or self-care (01) | DRG 807 ==
PROVIDERS: Admitting Provider Obstetrics & Gynecology; Visit Provider Obstetrics & Gynecology
DX: O41.03X0 Oligohydramnios, third trimester, not applicable or unspecified (principal); Z37.0 Single live birth; Z3A.38 38 weeks gestation of pregnancy; O36.5930 Maternal care for other known or suspected poor fetal growth, third trimester, not applicable or unspecified; O99.02 Anemia complicating childbirth
CPT/HCPCS: 59409; 36415; 59025; 80305; 81001; 85014; 85018; 85025; 86850; 87086; 94761; C1758; C9803; G0283; J0290; U0003; U0005

== ENCOUNTER → 2022-07-12 18:09 | Outpatient (CLI) | payer OTHER, SELFPAY | PROVIDERS: PCP Obstetrics & Gynecology; Visit Provider Obstetrics & Gynecology | DX: Z34.90 Encounter for supervision of normal pregnancy, unspecified, unspecified trimester (principal) | CPT/HCPCS: 86403 ==

== ENCOUNTER → 2023-06-28 16:15 | Outpatient (CLI) | payer OTHER, SELFPAY ==
[2023-06-28 16:47] LABS: Basophils % 0.4 % (0.1-2.0); Eosinophils # 0.1 K/mm3 (0.0-0.4); Eosinophils % 1.6 % (0.1-12.0); Hematocrit 31.9 % (37.0-47.0); Hemoglobin 10.9 g/dL (12.2-16.2); Lymphocytes % 12.4 % (10-50); Mean Corpuscular HGB Conc 34.2 g/dL (31.8-35.4); Mean Corpuscular Hemoglobin 30.4 pg (27.0-31.2); Mean Platelet Volume 9.3 fl (7.4-10.4); Monocytes # 0.3 K/mm3 (0.1-1.0); Monocytes % 3.4 % (1.7-9.3); Neutrophils # 6.7 K/mm3 (1.8-7.8); Neutrophils % 82.2 % (37.0-80.0); Platelet Count 219 K/mm3 (142-424); Red Blood Count 3.59 M/mm3 (4.20-5.40); Red Cell Distribution Width 14.5 % (11.5-17.5); White Blood Count 8.1 K/mm3 (4.8-10.8)
[2023-06-30 08:23] LABS: Rubella Antibodies, IgG 1.74 index (Immune >0.99)
[2023-06-30 08:24] LABS: HIV Screen 4th Generation wRfx Non Reactive (Non Reactive)
[2023-06-30 09:44] LABS: Rapid Plasma Reagin Ab Titer Non Reactive titer (NonRea<1:1)
[2023-07-01 09:41] LABS: Hepatitis B Surface Antigen Negative; Hepatitis C Antibody Non Reactive
== END ==
PROVIDERS: Visit Provider Obstetrics & Gynecology
DX: Z34.92 Encounter for supervision of normal pregnancy, unspecified, second trimester (principal); Z3A.21 21 weeks gestation of pregnancy
CPT/HCPCS: 85025; 86593; 86703; 86762; 86850; 87086; 87340; 87380; G0432

== ENCOUNTER → 2023-07-10 14:51 | Outpatient (CLI) | payer OTHER, SELFPAY ==
--- NOTE | 2023-07-10 14:51 | US_ITS ---
PROCEDURE: US OB /MATERNAL DETAIL CLINICAL INDICATION: 20 week anatomy scan COMPARISON: No other ultrasounds to compare. FINDINGS: Transabdominal sonographic images of the pelvis were obtained. From her established due date she is 22 weeks 6 days.. Single viable intrauterine gestation. Breech position. Placenta: Posterolateralplacenta grade 1. There is an average amount of fluid. MVP 2.2 cm. The cervix appears satisfactory. Closed and measuring 4.5 cm in length. Complete survey performed and was unremarkable on the submitted images as in PACS. No discrete anomalies identified on survey imaging by technologist. Active fetus. Three-vessel cord with satisfactory umbilical cord insertion. 4- chamber heart noted. Situs, LVOT, RVOT, three-vessel view appear normal. Survey of brain & ventricles Unremarkable. Cerebellum, cisterna magna, thalamus, choroid plexus appear normal. Face and neck survey unremarkable. Profile, nasion, lips and nose appeared normal. Diaphragm and chest views unremarkable. Abdomen: Both kidneys noted and mild renal pyelectasis measuring 5.8 mm right kidney. Stomach and bladder noted and satisfactory. Spine: Survey of the spine satisfactory with no anomalies identified nor imaged. Cervical, thoracic and lower spine appear normal. Both arms and legs noted. Amniotic Fluid: Adequate. Measurements: Average ultrasound age 24weeks 6days. Estimated due date by ultrasound age 0210/24/2023. Estimated weight 756g BPD = 24weeks 5days OFD = 25weeks HC = 24weeks 3days AC = 25weeks 1day FL = 25weeks 1day Growth Percentile= Heart Rate = 144bpm Cerebellum = 24weeks 4days Humerus = 25weeks HC/AC is 1.09 CI is 0.75 FL/BPD is 0.75 FL/AC is 0.22 IMPRESSION: 1. Viable fetus in the breech presentation with a posterolateral placenta grade 1. 2. biometry reveals that the fetus is approximately 2 weeks ahead on its growth. 3. If there is no early ultrasound, would suggest revising her due date to reflect this. The revised NICK will be October 24, 2023. 4. Anatomical scan is normal. 5. There is 5.8 mm right renal pyelectasis. Would suggest follow-up. Consider MFM consult. Dictated by: Horace Goldstein MD 07/10/2023 16:58 Horace Goldstein MD in [place] 07/10/2023 16:58
== END ==
PROVIDERS: PCP Obstetrics & Gynecology; Visit Provider Obstetrics & Gynecology
DX: Z34.92 Encounter for supervision of normal pregnancy, unspecified, second trimester (principal); Z3A.20 20 weeks gestation of pregnancy
CPT/HCPCS: 76811

== ENCOUNTER → 2023-08-22 14:13 | Outpatient (CLI) | payer OTHER, SELFPAY ==
[2023-08-22 14:28] LABS: Basophils % 0.3 % (0.1-2.0); Eosinophils # 0.1 K/mm3 (0.0-0.4); Eosinophils % 1.3 % (0.1-12.0); Hematocrit 30.1 % (37.0-47.0); Hemoglobin 10.1 g/dL (12.2-16.2); Lymphocytes # 1.9 K/mm3 (0.7-4.5); Lymphocytes % 20.9 % (10-50); Mean Corpuscular HGB Conc 33.8 g/dL (31.8-35.4); Mean Corpuscular Hemoglobin 28.2 pg (27.0-31.2); Mean Corpuscular Volume 83.4 fl (81-99); Mean Platelet Volume 9.7 fl (7.4-10.4); Monocytes # 0.4 K/mm3 (0.1-1.0); Monocytes % 4.5 % (1.7-9.3); Neutrophils # 6.6 K/mm3 (1.8-7.8); Neutrophils % 73.1 % (37.0-80.0); Platelet Count 232 K/mm3 (142-424)
== END ==
LOC: LAB 14:15
PROVIDERS: Visit Provider Obstetrics & Gynecology
DX: Z34.93 Encounter for supervision of normal pregnancy, unspecified, third trimester (principal); Z3A.31 31 weeks gestation of pregnancy
CPT/HCPCS: 36415; 85025

== ENCOUNTER 2023-08-25 17:34 | Outpatient (CLI) | payer OTHER, SELFPAY ==
[2023-08-25 18:00] VITALS: BP 105/71; PULSE 110; RESP 18; TEMP 37; O2SAT 98
[2023-08-25 18:08] VITALS: BMI 24.2
[2023-08-25 18:18] LABS: Microscopic, Urine URINE MICROSCOPIC (MICROSCOPIC)
[2023-08-25 18:19] LABS: Appearance,Urine SL CLOUDY (Clear); Blood, Urine Negative (Negative); Color,Urine YELLOW (Yellow); Glucose,Urine (UA) Negative (Negative); Ketones,Urine TRACE (Negative); Leukocyte Esterase,Urine TRACE (Negative); Nitrate,Urine Negative (Negative); PH,Urine 7.5 (5.0-8.5); Protein,Urine TRACE (Negative)
[2023-08-25 18:32] LABS: Bilirubin,Urine 1+ (Negative)
[2023-08-25 18:46] VITALS: BMI 23.8
[2023-08-25 18:46] LABS: Bacteria,Urine 2+ /lpf; Calcium Oxalate Crystals,Urine Trace /lpf
[2023-08-25 18:48] LABS: Amphetamine/Metha Screen,Urine Negative ng/ml (<1000); Barbiturates Screen,Urine Negative ng/ml (<200); Benzodiazepines Screen,Urine Negative ng/ml (<200); Cannabinoid Screen,Urine Negative ng/ml (<50); Cocaine Screen,Urine Negative ng/ml (<300); Methadone Screen,Urine Negative ng/ml (<300); Opiate Screen,Urine Negative ng/ml (<300); Phencyclidine Screen,Urine Negative ng/ml (<25)
[2023-08-25] MEDS: LACTATED RINGERS 1000ML 1,000 ML 999 ML IV (19:20)
[2023-08-25] MEDS: ACETAMINOPHEN 500MG TAB 1000 MG PO (19:48)
[2023-08-25] MEDS: CEFTRIAXONE 1 GM 1 GM in 0.9 % SODIUM CHLORIDE 50 ML IV (20:10)
== END 2023-08-25 21:00 | disposition home or self-care (01) ==
LOC: OBOUT 17:36 → OB 17:36
PROVIDERS: Visit Provider Obstetrics & Gynecology
DX: O26.893 Other specified pregnancy related conditions, third trimester (principal); Z3A.31 31 weeks gestation of pregnancy
CPT/HCPCS: 59025; 80307; 81001; 87086; 96365; G0463; J0696

== ENCOUNTER 2023-09-09 16:51 | Outpatient (CLI) | payer OTHER, SELFPAY ==
[2023-09-09 17:26] VITALS: BMI 23.1
[2023-09-09 17:49] VITALS: BP 108/67; PULSE 100; RESP 16; TEMP 37.1; O2SAT 100; BMI 23.1
[2023-09-09 18:00] LABS: Microscopic, Urine URINE MICROSCOPIC (MICROSCOPIC)
[2023-09-09 18:18] LABS: Appearance,Urine SL CLOUDY (Clear); Bilirubin,Urine Negative (Negative); Blood, Urine Negative (Negative); Color,Urine YELLOW (Yellow); Glucose,Urine (UA) Negative (Negative); Ketones,Urine Negative (Negative); Leukocyte Esterase,Urine 2+ (Negative); Nitrate,Urine Negative (Negative); PH,Urine 7.5 (5.0-8.5); Protein,Urine Negative (Negative); Specific Gravity, Urine 1.015 (1.005-1.030)
[2023-09-09] MEDS: DEXTROSE 5%-LACTATED RINGERS 1,000 ML 999 ML IV (18:30)
[2023-09-09 18:34] LABS: Amphetamine/Metha Screen,Urine Negative ng/ml (<1000); Barbiturates Screen,Urine Negative ng/ml (<200); Benzodiazepines Screen,Urine Negative ng/ml (<200); Cannabinoid Screen,Urine Negative ng/ml (<50); Cocaine Screen,Urine Negative ng/ml (<300); Methadone Screen,Urine Negative ng/ml (<300); Opiate Screen,Urine Negative ng/ml (<300); Phencyclidine Screen,Urine Negative ng/ml (<25)
[2023-09-09 18:37] LABS: Bacteria,Urine 2+ /lpf; Squamous Epithelial Cell,Urine Occasional #/hpf (0-5); WBC,Urine 20-50 #/hpf (0-3); Yeast,Urine Occasional /lpf
== END 2023-09-09 20:12 | disposition home or self-care (01) ==
LOC: OBOUT 16:54 → OB 16:56
PROVIDERS: Referring Provider Obstetrics & Gynecology; Visit Provider Nurse Practitioner Obstetrics & Gynecology
DX: O47.03 False labor before 37 completed weeks of gestation, third trimester (principal); Z3A.33 33 weeks gestation of pregnancy
CPT/HCPCS: 59025; 80307; 81001; 87086; 96365; G0463

== ENCOUNTER 2023-09-26 16:18 | Outpatient (CLI) | payer OTHER, SELFPAY ==
--- NOTE | 2023-09-26 16:19 | US_ITS ---
PROCEDURE: US OB BIOPHYSICAL PROFILE CLINICAL INDICATION: Growth/BPP/ SD ratio COMPARISON: US US OB /MATERNAL DETAIL from 07/10/2023 FINDINGS: Transabdominal sonographic images of the uterus were obtained. From her established due date she is 36weeks 0 days. The following parameters are obtained: Viable Fetus in the cephalic presentation with a fundal placenta grade 2. Average ultrasound age is 34weeks 2days Estimated weight 2,381g, 5 lb 4 oz The cervix measures 3.43 cm. Measurements: heart Rate = 146bpm BPD = 34weeks 2days OFD = 34weeks 5days HC = 34weeks 1day AC = 34weeks 2days FL = 34weeks 2days HC/AC is 1.01 Cephalic Index is 0.78 FL/BPD is 0.78 FL/AC is 0.22 11 percentile Amniotic fluid index: 6.85cm, MVP 3.72 cm Qualitative AFV:2 Breathing movements: 2 Gross Body Movements: 2 Tone: 2 Biophysical profile score: 8 Doppler evaluation of the umbilical artery: SD ratio: 2.5-2.75 Resistive index: 0.62 No obvious anomalies evident.Kidneys, bladder, stomach, profile, nasion, four-chamber heart, three-vessel cord appear normal. IMPRESSION: 1. Viable fetus in the cephalic presentation with a fundal placenta grade 2. 2. The fluid is within normal limits with an amniotic fluid index of 6.85 cm, MVP 3.72 cm. 3. Biophysical profile is 8/8 with good breathing movement and movement seen. SD ratio normal. 4. Fetus is globally small for gestational age currently 11th percentile. Dictated by: Horace Goldstein MD 09/28/2023 10:58 Horace Goldstein MD in OV 09/28/2023 10:58
== END 2023-09-26 23:59 ==
LOC: RAD 16:19
PROVIDERS: PCP Obstetrics & Gynecology; Visit Provider Obstetrics & Gynecology
DX: O36.5930 Maternal care for other known or suspected poor fetal growth, third trimester, not applicable or unspecified (principal); Z3A.36 36 weeks gestation of pregnancy
CPT/HCPCS: 76816; 76819; 76820; 86403

== ENCOUNTER 2023-10-01 15:38 | Outpatient (CLI) | payer OTHER, SELFPAY ==
--- NOTE | 2023-10-01 15:46 | US_ITS ---
PROCEDURE: US OB BIOPHYSICAL PROFILE CLINICAL INDICATION: sga COMPARISON: US US OB /MATERNAL DETAIL from 07/10/2023 US US OB BIOPHYSICAL PROFILE from 09/26/2023 FINDINGS: Transabdominal sonographic images of the uterus were obtained. From her established due date she is 36weeks 5days. The following parameters are obtained: Viable Fetus in the cephalic presentation with a posterolateral placenta grade 2. Average ultrasound age is 33weeks 6days Estimated weight 2,274g The cervix measures 2.7 cm. Measurements: BPD = 33weeks 3days, less than 2nd percentile HC = 34weeks 0 days, less than 2nd percentile AC = 33weeks 4days, less than 2nd percentile FL = 34weeks 3days, 5th percentile HC/AC is 1.03 FL/BPD is 0.81 FL/AC is 0.23 4 percentile Amniotic fluid index: 6.15 cm, MVP 3.77 cm Qualitative AFV:2 Breathing movements: 2 Gross Body Movements: 2 Tone: 2 Biophysical profile score: 8 Doppler evaluation of the umbilical artery: SD ratio: 2.2-2.79 Resistive index: 0.64 No obvious anomalies evident.Kidneys, diaphragm, three-vessel cord appear normal. IMPRESSION: 1. Viable fetus in the cephalic presentation with a posterolateral placenta grade 2. 2. The fluid is slightly low with an amniotic fluid index of 6.15 cm. MVP 3.77 cm. 3. Biophysical profile 8/8 with good breathing movement and movement seen. 4. SD ratio normal at 2 0.2-2.79. 5. The fetus is globally small measuring less than the 2nd percentile. 6. Dr. Arana was notified of the results by the wet process technician. Dictated by: Horace Goldstein MD 10/02/2023 14:34 Horace Goldstein MD in OV 10/02/2023 14:34
== END 2023-10-01 23:59 ==
LOC: RAD 15:40
PROVIDERS: Visit Provider Obstetrics & Gynecology
DX: O36.5990 Maternal care for other known or suspected poor fetal growth, unspecified trimester, not applicable or unspecified (principal)
CPT/HCPCS: 76816; 76819; 76820

== ENCOUNTER 2023-10-01 16:28 | Outpatient (CLI) | payer OTHER, SELFPAY ==
[2023-10-01 16:37] VITALS: BP 109/70; PULSE 102; RESP 16; TEMP 36.7; O2SAT 100; BMI 24.0
[2023-10-01] MEDS: BETAMETHASONE ACET/PHOS 6MG/ML 5ML MDV 12 MG IM (16:50)
== END 2023-10-01 16:52 | disposition home or self-care (01) ==
LOC: OBOUT 16:31 → OB 16:32
PROVIDERS: Visit Provider Obstetrics & Gynecology
DX: Z34.90 Encounter for supervision of normal pregnancy, unspecified, unspecified trimester (principal)
CPT/HCPCS: 96372; G0463

== ENCOUNTER 2023-10-02 16:55 | Inpatient (IN) | payer OTHER, SELFPAY ==
[2023-10-02 17:00] VITALS: BP 121/75; PULSE 107; RESP 20; TEMP 36.6; O2SAT 100; BMI 24.0
[2023-10-02 17:23] LABS: Basophils % 0.2 % (0.1-2.0); Eosinophils % 0.3 % (0.1-12.0); Hematocrit 29.7 % (37.0-47.0); Hemoglobin 9.5 g/dL (12.2-16.2); Lymphocytes # 1.4 K/mm3 (0.7-4.5); Lymphocytes % 12.2 % (10-50); Mean Corpuscular Volume 78.1 fl (81-99); Mean Platelet Volume 11.3 fl (7.4-10.4); Monocytes # 0.4 K/mm3 (0.1-1.0); Monocytes % 3.6 % (1.7-9.3); Neutrophils # 9.4 K/mm3 (1.8-7.8); Neutrophils % 83.7 % (37.0-80.0); Platelet Count 226 K/mm3 (142-424); Red Cell Distribution Width 15.3 % (11.5-17.5); White Blood Count 11.2 K/mm3 (4.8-10.8)
[2023-10-02] MEDS: BETAMETHASONE ACET/PHOS 6MG/ML 5ML MDV 12 MG IM (17:53)
[2023-10-02 20:02] VITALS: BP 104/52; PULSE 101; RESP 20; TEMP 36.7; O2SAT 97
[2023-10-03 04:00] VITALS: BP 131/65; PULSE 74; RESP 18; TEMP 37; O2SAT 94
[2023-10-03 04:17] VITALS: BP 104/68; PULSE 88; RESP 18; TEMP 36.7; O2SAT 97
[2023-10-03] MEDS: DEXTROSE 5%-LACTATED RINGERS 1,000 ML 125 ML IV (06:12)
[2023-10-03] MEDS: OXYTOCIN/RINGERS LACTATE 30 UNITS/500 ML BAG IV (06:13)
[2023-10-03] MEDS: AMPICILLIN SODIUM 2 GM in 0.9 % SODIUM CHLORIDE 100 ML IV (06:14)
--- NOTE | 2023-10-03 08:26 | EXP.ANES.CKL ---
[facility] Disclaimer: The information contained in this section may have been updated after the patient was seen, as this information can be updated by other users. Medical History GBS bacteriuria Urine culture at initial ob visit demonstrated GBS. She will need GBS prophylaxis in labor regardless of RV swab Surgical History No history of previous surgery Family History Other No significant family history Social History Smoking Status: Never smoker alcohol intake: never substance use type: denies use current occupational status: unemployed Travel in the last 8 weeks: None do you feel safe at home: Yes victim of physical abuse: No victim of emotional abuse: No victim of sexual abuse: No would you like helpful sources: No [facility] Anesthesia Checklist Patient Identification Patient Identification: Verbal (Name & ) Structural Data Admitted From: Inpatient Planned Operative Procedure/s: labor epidural Consent for Planned Operative Procedure(s) Verified: Yes Airway Assessment Mallampati Score:: Class II C-Spine Mobility Assessed: Yes TMJ Mobility Assessed: Yes Dentition: Good Dentition Neurological Assessment Level of Consciousness: Awake, Alert and Appropriate Anesthesia Plan Anesthesia Risk discussed: Yes Anesthesia Plan: Verified ASA Class: II Anesthesia Type: Epidural
[2023-10-03] MEDS: LACTATED RINGERS 1000ML 1,000 ML 999 ML IV (09:00)
[2023-10-03] MEDS: AMPICILLIN SODIUM 1 GM in 0.9 % SODIUM CHLORIDE 50 ML IV (09:53)
--- NOTE | 2023-10-03 09:55 | P.HP_ITS ---
History of Present Illness *Admission Date: 10/02/23 *Reason for visit:: Induction *History of present illness: Ml Mac is a 23-year-old -0-2-3 who presents today at 37 weeks and 0 days gestation, dating is based on a 20-week anatomy scan. She was admitted to labor and delivery yesterday for induction of labor secondary to intrauterine growth restriction. Fetus is globally growth restricted at less than the 2nd percentile on several measurements and overall the is in the 4th percentile. DARREN: 6.15. SD ratio was appropriate. The patient did receive steroids x 2 doses by 24 hours for lung maturity. Otherwise her has also been complicated by GBS bacteriuria, poor care, late to care. She received corticosteroids for lung maturity on 10/01 and 10/02. On presentation patient endorsed good movement and denies any leakage of fluid or vaginal bleeding. B+, antibody negative, Negative gonorrhea and Chlamydia, Negative UDS, RPR nonreactive, hepatitis B negative, hepatitis C negative, HIV negative, rubella immune 1 hour GTT: Not completed GBS positive Growth scan on 10/01/2023 -At this gestational age the patient was 36 weeks and 5 days. EFW: 2274 g, 4th percentile. BPD: Less than 2nd percentile, HC: Less than 2nd percentile, AC: Less than 2nd percentile, FL: 5th percentile. DARREN: 6.15 cm. BPP: 8/8. Normal SD ratio. [facility] Disclaimer: The information contained in this section may have been updated after the patient was seen, as this information can be updated by other users. Medical History GBS bacteriuria Urine culture at initial ob visit demonstrated GBS. She will need GBS pr ophylaxis in labor regardless of RV swab Surgical History No history of previous surgery Family History Other No significant family history Social History Smoking Status: Never smoker alcohol intake: never substance use type: denies use current occupational status: unemployed Travel in the last 8 weeks: None do you feel safe at home: Yes victim of physical abuse: No victim of emotional abuse: No victim of sexual abuse: No would you like helpful sources: No Review of Systems Review of Systems Review of systems (narrative): Review of Systems Constitutional: Denies fever, chills, and sweats Eyes: Denies vision change/ pain Respiratory: Denies cough and shortness of breath Cardiovascular: Denies chest pain and lightheadedness Gastrointestinal: Denies contractions. Denies nausea, vomiting. Genitourinary: Denies dysuria and incontinence Musculoskeletal: Denies shoulder pain and back pain Neurological: Denies change in speech or headaches Meds Home Medications and Allergies Home Medications Medication Instructions Recorded Confirmed Type No Known Home Medications 09/30/23 10/03/23 History New Prescriptions to Start Prescriptions: Allergies Allergy/AdvReac Type Severity Reaction Status Date / Time No Known Allergies Allergy Verified 10/01/23 15:00 Exam Data for Last 24 hours Vital signs and Labs for Last 24 Hours: Temp Pulse Resp BP Pulse Ox O2 Del Method 98.0 F 88 18 104/68 L 97 Room Air 10/03/23 04:17 10/03/23 04:17 10/03/23 04:17 10/03/23 04:17 10/03/23 04:17 10/03/23 04:17 Laboratory Results - last 24 hr 10/02/23 17:14: WBC 11.2 H, RBC 3.80 L, Hgb 9.5 L, Hct 29.7 L, MCV 78.1 L, MCH 25.0 L, MCHC 32.0, RDW 15.3, Plt Count 226, MPV 11.3 H, Neut % (Auto) 83.7 H, Lymph % (Auto) 12.2, Dillon % (Auto) 3.6, Eos % (Auto) 0.3, Baso % (Auto) 0.2, Neut # (Auto) 9.4 H, Lymph # (Auto) 1.4, Dillon # (Auto) 0.4, Eos # (Auto) 0.0, Baso # (Auto) 0.0 I & O for Last 24 hours: Intake & Output 09/30/23 10/01/23 10/02/23 10/03/23 23:59 23:59 23:59 23:59 Weight 111 lb Narrative: General: patient is alert oriented in no acute distress and responds appropriately to questions. HEENT: NCAT, EOMI, moist mucous membranes, neck supple with full ROM Cardiovascular: RRR +S1/S2, no murmurs or rubs Pulmonary: Clear to auscultation bilaterally, nonlabored breathing, symmetric chest rise Abdominal: Gravid abdomen appropriate for gestation. No guarding, rebound, or tenderness noted. SVE: On admission 460/-2 Extremities: trace edema, no tenderness or cyanosis noted Skin: Normal turgor, intact, warm. Negative for erythema, pallor, petechia, or lesions Neurologic: Negative for sensory or motor deficit Psychiatric: Normal affect, normal thought process, good judgment and insight, no depression or anxious mood appreciated. *Routine HEENT Exam Head: Present normocephalic and atraumatic Eye: Present EOMI, PERRL and normal accommodation; Absent conjunctival icterus, scleral injection, nystagmus or exophthalmos ENT: Present mucous membranes moist *Routine Respiratory Exam Respiratory: Present CTA bilaterally, normal respiratory effort, able to speak in complete sentences and symmetric chest movement; Absent accessory muscle use, decreased breath sounds, rales, respiratory distress, wheezes, distant breath sounds or diminished air movement *Routine Cardiovascular Exam Cardiovascular: Present RRR, Normal S1 and Normal S2; Absent murmur or gallop *Routine Abdominal Exam Abdominal: Present soft and normoactive bowel sounds; Absent tenderness, distended, rebound or guarding *Routine Rectal Exam Rectal:: deferred *Routine Genitalia Exam Genitalia:: normal female Assessment and Plan *Assessment and plan (1) IUGR (intrauterine growth restriction): Status: Acute Category: Medical (2) GBS bacteriuria: Problem Comment: Urine culture at initial ob visit demonstrated GBS. She will need GBS prophylaxis in labor regardless of RV swab Status: Acute Category: Medical Code(s): R82.71 - Bacteriuria (3) Poor patient attendance of care: Status: Acute Category: Medical Code(s): O09.30 - Supervision of with insufficient care, unspecified trimester (4) : Status: Acute Category: Medical Code(s): Z34.90 - Encounter for supervision of normal , unspecified, unspecified trimester (5) Anemia affecting : Status: Acute Category: Medical Code(s): O99.019 - Anemia complicating , unspecified trimester Plan Patient presented to labor and delivery on 10/01/2022 for her second steroid shot for lung maturity. Patient was unable to get transportation home and back to the hospital this morning for induction so she was admitted and kept overnight. - Monitor vitals - Admit to L&D for induction of labor secondary to IUGR - Plan for induction per Pitocin protocol - External FHR and TOCO monitor - Exam on admission: /-2 - GBS+/ Blood type: B+ - Continue GBS prophylaxis with penicillin G [id number] - Hemoglobin: 9.5, Plt: 226 - Plan for epidural - Anticipate vaginal delivery of Male
[2023-10-03] MEDS: LACTATED RINGERS 1000ML 1,000 ML 250 ML IV (13:30)
[2023-10-03] MEDS: OXYTOCIN/RINGERS LACTATE 30 UNITS/500 ML BAG 40 UNITS IV ×2 (13:40→13:45)
--- NOTE | 2023-10-03 15:29 | EXP.DN ---
Delivery Note Delivery Date:: 10/03/23 Delivery Time:: 13:25 Anesthesia Type: Epidural Was labor medically induced?: Yes Induction method: per pitocin protocol Gestational age (weeks): 37 delivered prior to 39 weeks?: Yes Justification for early elective delivery:: IUGR Gender: Male at 1 minute: 9 at 5 minutes: 9 Delivery Procedure:: Preoperative diagnosis: 1. at 37 completed this weeks gestation, vertex 2. Rh positive 3. GBS positive 4. Intrauterine growth restriction 5. Scant care 6. Anemia 7. Desires sterilization Postoperative diagnosis: 1. at 37 completed this weeks gestation, vertex 2. Rh positive 3. GBS positive 4. Intrauterine growth restriction 5. Scant care 6. Anemia 7. Desires sterilization EBL: 50mL Specimen: 1. Cord blood 2. Placenta Findings: 1. Liveborn viable male infant: Shun Mcmahon. Apgars 9/9 at 1 and 5 minutes respectively. Weight 6lb 6oz Complications: None Procedure: Nonoperative spontaneous vaginal delivery Ml Mac is a 23-year-old -0-2-3 who presents today at 37 weeks and 0 days gestation for a medically indicated induction of labor. Pitocin was started this morning for induction. Patient had artificial rupture of membranes revealing clear fluid. She received an epidural for anesthesia. She progressed to complete. The infant was noted to be in MONTY position. With effective maternal pushing there was a nonoperative spontaneous vaginal delivery. There was no nuchal cord. The anterior right shoulder delivered, followed by the posterior shoulder without dystocia. The body and lower extremities delivered without difficulty. The infant was bulb suctioned and was crying immediately following delivery. The was placed on the maternal abdomen and greater than one minute was appreciated for delayed cord clamping. The umbilical cord was doubly clamped and cut. Cord blood was collected and sent for routine testing. The placenta delivered with cord traction and suprapubic contertraction. Secondary to IUGR the placenta was sent to pathology. Pitocin was started. The placenta was noted to be intact, with a 3 vessel cord. The uterus was firm and bleeding was minimal. The perineum, vaginal king, cervix, and paraurethral area were inspected thoroughly. There was a small abrasion at the perineum that was hemostatic and did not require repair. This concluded the delivery. The patient was counseled regarding the events of the delivery. The patient tolerated the delivery well. All counts were correct by nursing. Mother and infant were doing well and bonding upon my leaving the delivery room. Placental Delivery Description: Spontaneous
[2023-10-03 19:25] VITALS: BP 110/61; PULSE 78; RESP 18; TEMP 37.1; O2SAT 97
--- NOTE | 2023-10-04 02:12 | EXP.PN ---
Subjective *Date: 10/04/23 *Time: 08:36 Interval history: Ml Mac is a 23yo PPD#1 from a at 37weeks secondary to IUGR. Delivery was uncomplicated and she is doing well. was complicated by GBS positive, scant care, anemia and at the end of IUGR. Reports that pain is well-controlled and her lochia is scant. She is bottlefeeding her male . Denies any nausea or vomiting and is tolerating p.o. well. She is ambulating and voiding without difficulty or dysuria. Denies any chest pain, shortness of breath, pain in her legs. No further complaints at this time Exam Data for Last 24 hours Vital signs and Labs for Last 24 Hours: Temp Pulse Resp BP Pulse Ox O2 Del Method 98.8 F 78 18 110/61 97 Room Air 10/03/23 19:25 10/03/23 19:25 10/03/23 19:25 10/03/23 19:25 10/03/23 19:25 10/03/23 19:25 I & O for Last 24 hours: Intake & Output 10/01/23 10/02/23 10/03/23 10/04/23 23:59 23:59 23:59 23:59 Weight 111 lb Narrative: General: patient is alert oriented in no acute distress and responds appropriately to questions. Appears to be in minimal pain. HEENT: NCAT, EOMI, moist mucous membranes, neck supple with full ROM Cardiovascular: RRR +S1/S2, no murmurs or rubs Pulmonary: Clear to auscultation bilaterally, nonlabored breathing, symmetric chest rise Abdominal: Fundus below the umbilicus, firm, and tenderness appropriate for the period. Extremities: trace edema, no tenderness or cyanosis noted Skin: Normal turgor, intact, warm. Negative for erythema, pallor, petechia, or lesions Neurologic: Negative for sensory or motor deficit Psychiatric: Normal affect, normal thought process, good judgment and insight, no depression or anxious mood appreciated. Constitutional Constitutional: no acute distress *Routine HEENT Exam Head: Present normocephalic Eye: Present EOMI and PERRL ENT: Present mucous membranes moist *Routine Neck Exam Neck: Present supple; Absent lymphadenopathy *Routine Respiratory Exam Respiratory: Present CTA bilaterally *Routine Cardiovascular Exam Cardiovascular: Present RRR *Routine Abdominal Exam Abdominal: Present soft and normoactive bowel sounds; Absent tenderness *Routine Extremities Exam Extremities: Absent cyanosis, clubbing or edema *Routine Skin Exam Skin: Present warm; Absent rash *Routine Neurological Exam Neurological: Present alert and oriented X3 Assessment and Plan *Assessment and plan (1) (spontaneous vaginal delivery): Status: Acute Category: Medical Code(s): O80 - Encounter for full-term uncomplicated delivery (2) Anemia: Status: Acute Qualifiers: Anemia type: iron deficiency Iron deficiency anemia type: inadequate dietary iron intake Qualified Code(s): D50.8 - Other iron deficiency anemias Category: Medical Code(s): D64.9 - Anemia, unspecified Plan Stable. PPD#1 s/p -IP. -Doing well. VSS. Serial lochia and fundal checks. -Continue with perineal ice packs for discomfort -B+/antibody negative -Bottle feeding, male -Contraception: BSG at 6wk #Anemia -Hemoglobin: 9.5--> 9.0 -MCV: 77. Likely chronic iron deficiency anemia - asymptomatic anemia noted. Vitals stable. Continue monitoring. DC with Fe -Follow-up 2 weeks for routine visit -Dispo: home in 1-3 days pending mother/ status
[2023-10-04] MEDS: ACETAMINOPHEN 500MG TAB 1000 MG PO ×2 (05:20→16:11)
[2023-10-04 06:08] LABS: Basophils % 0.3 % (0.1-2.0); Eosinophils # 0.1 K/mm3 (0.0-0.4); Eosinophils % 0.3 % (0.1-12.0); Hematocrit 27.9 % (37.0-47.0); Lymphocytes # 1.9 K/mm3 (0.7-4.5); Lymphocytes % 11.2 % (10-50); Mean Corpuscular HGB Conc 32.3 g/dL (31.8-35.4); Mean Corpuscular Hemoglobin 25.1 pg (27.0-31.2); Mean Corpuscular Volume 77.8 fl (81-99); Mean Platelet Volume 11.1 fl (7.4-10.4); Monocytes # 0.9 K/mm3 (0.1-1.0); Monocytes % 5.2 % (1.7-9.3); Neutrophils # 14.4 K/mm3 (1.8-7.8); Neutrophils % 83.1 % (37.0-80.0); Platelet Count 224 K/mm3 (142-424); Red Blood Count 3.58 M/mm3 (4.20-5.40); Red Cell Distribution Width 15.3 % (11.5-17.5); White Blood Count 17.3 K/mm3 (4.8-10.8)
[2023-10-04 06:24] LABS: MANUAL DIFFERENTIAL MANUAL DIFFERENTIAL (MANUAL DIFF)
[2023-10-04 07:53] LABS: Hypochromasia 1+; Lymphocytes % 13 % (10-50); Monocytes % 3 % (2-9); Neutrophils % 84 % (42-76); Platelet Estimate Normal; Total Cells Counted 100
[2023-10-04 08:10] VITALS: BP 114/70; PULSE 56; RESP 17; TEMP 36.8; O2SAT 100
--- NOTE | 2023-10-04 14:10 | SW/DCPLANNER ---
Addendum entered by Kateryna Mosley 10/10/23 08:06: Infant cord screen is NEGATIVE. Original Note: I received a referral on this patient regarding: limited/late care and home support. Patient delivered infant male (Torrey Mcfarland) on 10/03/23. Per patient: infant's father (Shaye Mcfarland Jr 99) is involved. Patient, Shaye, and three other children (Shaye Mcfarland III 02/13/20, Gene Mcfarland 07/22/21 and Loan Mcfarland 07/13/22) will reside at [address] [place] in [place] [facility]. Patient stated there has been past Social Service involvement: due to child falling in bathub, open/closed cased, no children were removed. Patient is currently established w/ WIC. Patient stated that she does have the following items at home: crib, carseat, clothing, diapers and will be bottle feeding. Patient stated that she will have transportation to all follow up appointments. PED MD will be Dr Thompson. Patient stated the reasoning for late care was due to not finding out she was till 20 weeks. Patient is planned to discharge home tomorrow 10/05/23 pending no setbacks. Nursing staff (Ml) stated that patient is appropriate at this time but will follow up w/ Central Intake if there are any changes prior to discharge.
[2023-10-04] MEDS: MEDROXYPROGESTERONE ACETATE 150MG/ML SYR 150 MG IM (15:39)
[2023-10-04] MEDS: IBUPROFEN 400 MG TABLET 800 MG PO (16:12)
[2023-10-05] MEDS: ALUMINUM/MAGNESIUM/SIMETHICONE 30ML UDC 30 ML PO (06:01)
[2023-10-05 08:00] VITALS: BP 116/69; PULSE 60; RESP 17; TEMP 36.7; O2SAT 96
[2023-10-05] MEDS: IBUPROFEN 400 MG TABLET 800 MG PO (08:12)
--- NOTE | 2023-10-05 12:02 | EXP.DC.SUM ---
General Admission date:: 10/02/23 Discharge date: 10/05/23 HPI HPI HPI: PPD # 2 s/p She is feeling well. Pain controlled with ibuprofen. Formula feeding. Light lochia. Voiding without difficulty and passing flatus. Tolerating regular diet. Denies fever/chills, chest pain and shortness of breath. No headaches, vision changes, lightheadedness/dizziness. No lower extremity swelling. Ambulating well ad jai. Hospital Course Hospital Course Hospital Course: Ml Mac is a 23-year-old -0-2-3 at 37 weeks and 0 days gestation, dating is based on a 20-week anatomy scan, admitted to labor and delivery for induction of labor secondary to intrauterine growth restriction. Fetus is globally growth restricted at less than the 2nd percentile on several measurements and overall the infant is in the 4th percentile. DARREN: 6.15. S/D ratio was appropriate. has also been complicated by GBS bacteriuria, poor care and late to care. She received corticosteroids for lung maturity on 10/01 and 10/02. On presentation patient endorsed good movement and denies any leakage of fluid or vaginal bleeding. Growth scan on 10/01/2023 - 36 weeks and 5 days. EFW: 2274 g, 4th percentile. BPD: Less than 2nd percentile, HC: Less than 2nd percentile, AC: Less than 2nd percentile, FL: 5th percentile. DARREN: 6.15 cm. BPP: 8/8. Normal S/D ratio. She underwent induction of labor with Pitocin and amniotomy. GBS +/GBS batiuria. She was treated with Ampicillin in labor. She had a normal spontaneous vaginal delivery on 10/03/23 at 1325. She delivered a live male baby, Torrey, weighing 6 lb 6 oz. APGARs 9 (1 min), 9 (5 min). EBL 50 mL. She did well . Pain controlled with ibuprofen. Formula feeding. Light lochia. Voiding without difficulty and passing flatus. Tolerating regular diet. Denies fever/chills, chest pain and shortness of breath. No headaches, vision changes, lightheadedness/dizziness. No lower extremity swelling. Heart regular rate and rhyhtm. Lungs clear to ascultation. Abdomen soft, nontender. No lower extremity edema. Ambulating well ad jai. She was discharged home on PPD #2 with instructions to follow-up in the office in 2 weeks or sooner if needed. Exam Data for Last 24 hours Vital signs and Labs for Last 24 Hours: Temp Pulse Resp BP Pulse Ox O2 Del Method 98.0 F 60 17 116/69 96 Room Air 10/05/23 08:00 10/05/23 08:00 10/05/23 08:00 10/05/23 08:00 10/05/23 08:00 10/05/23 08:00 I & O for Last 24 hours: Intake & Output 10/02/23 10/03/23 10/04/23 10/05/23 23:59 23:59 23:59 23:59 Weight 111 lb Constitutional Constitutional: no acute distress and cooperative *Routine HEENT Exam Head: Present normocephalic and atraumatic Eye: Absent conjunctivae pink ENT: Present mucous membranes moist *Routine Neck Exam Neck: Present full ROM *Routine Respiratory Exam Respiratory: Present CTA bilaterally and normal respiratory effort *Routine Cardiovascular Exam Cardiovascular: Present RRR *Routine Abdominal Exam Abdominal: Present soft and normoactive bowel sounds; Absent tenderness or distended Comments: Uterine fundus firm and below umbilicus *Routine Rectal Exam Patient deferred: visual exam *Routine Exam Patient deferred: external exam *Routine Extremities Exam Extremities: Present full ROM; Absent edema or calf tenderness *Routine Neurological Exam Neurological: Present alert, moving all extremities and normal speech Routine Psychiatric Exam Psychiatric: Present normal affect and cooperative DS: Diagnosis Discharge Diagnosis (1) (spontaneous vaginal delivery): Status: Acute Code(s): O80 - Encounter for full-term uncomplicated delivery (2) Anemia: Status: Acute Code(s): D64.9 - Anemia, unspecified Qualifiers: Anemia type: iron deficiency Iron deficiency anemia type: inadequate dietary iron intake Qualified Code(s): D50.8 - Other iron deficiency anemias Meds Home Medications and Allergies Home Medications Medication Instructions Recorded Confirmed Type ibuprofen 800 mg tablet 800 mg PO Q8H PRN pain #20 tabs 10/05/23 Rx New Prescriptions to Start Prescriptions: ibuprofen Emma Bowie Allergies Allergy/AdvReac Type Severity Reaction Status Date / Time No Known Allergies Allergy Verified 10/01/23 15:00 Discharge Plan Disposition Patient Disposition: Home, Self-Care Condition: Good Discharge Order Discharge Orders: Discharge Order (Routine); Ordered 10/05/23 Ordered By: Emma Bowie Follow up Plan Follow up with: Karen Arana DO [Staff Physician] - 10/16/23 3:15 pm Prescriptions/Medication Reconciliation: New ibuprofen 800 mg tablet 800 mg PO Q8H PRN (Reason: pain) Qty: 20 0RF Problem Reconciliation Problems Reviewed?: Yes Patient Discharge Instructions ACTIVITY: Limited activity DIET: continue same diet and regular diet Additional Instructions: Discharge: 1. Take 800 mg Ibuprofen every 8 hours as needed for pain. You can also take 500-1000 mg of Tylenol in between doses, every 6-8 hours. 2. Nothing in the vagina for 6 weeks - no intercourse, douching or tampons. No tub baths/hot tubs or swimming pools 3. Reasons to return to L&D or call On-Call doctor - fever (greater than 100.4) - heavy vaginal bleeding (soaking through 1 pad in less than 2 hours) - vaginal discharge (malodorous and/or purulent) - severe headaches not resolved by medication or rest and leg tenderness/edema 4. depression/blues - Normal to feel anxious/overwhelmed for first 2 weeks - Talk to your doctor if: severe anxiety, trouble bonding with baby, withdrawing from other family members, thoughts of harming yourself or others Emma Bowie DO [facility] [phone] Patient Instructions: Depression, Hemorrhage, DI for Labor and Delivery, Vaginal , DI for Pre-eclampsia, [facility] Post Discharge Instructions Providers Primary Care Provider: Provider,Referral Admit Provider: Horace Goldstein Attending Provider: Horace Goldstein
== END 2023-10-05 13:15 | disposition home or self-care (01) | DRG 807 ==
PROVIDERS: Obstetrics & Gynecology; Admitting Provider Nurse Practitioner Obstetrics & Gynecology; Visit Provider Nurse Practitioner Obstetrics & Gynecology
DX: O99.02 Anemia complicating childbirth (principal); Z37.0 Single live birth; O36.5930 Maternal care for other known or suspected poor fetal growth, third trimester, not applicable or unspecified; O99.824 Streptococcus B carrier state complicating childbirth; Z3A.37 37 weeks gestation of pregnancy
CPT/HCPCS: 59409; 36415; 59025; 76816; 76819; 76820; 85007; 85025; 88307; 94761; 96360; 96372; G0283; G0463; J0290; J1050

== ENCOUNTER 2023-12-25 16:17 | Emergency (ER) | payer OTHER, SELFPAY ==
[2023-12-25 17:17] LABS: Microscopic, Urine URINE MICROSCOPIC (MICROSCOPIC)
[2023-12-25 17:42] LABS: Appearance,Urine CLEAR (Clear); Bilirubin,Urine Negative (Negative); Blood, Urine Negative (Negative); Color,Urine YELLOW (Yellow); Glucose,Urine (UA) Negative (Negative); Ketones,Urine Negative (Negative); Leukocyte Esterase,Urine Negative (Negative); Nitrate,Urine Negative (Negative); Protein,Urine Negative (Negative); Specific Gravity, Urine >= 1.030 (1.005-1.030); Urobilinogen,Urine 0.2 EU/dl (0.2)
--- NOTE | 2023-12-25 17:56 | ED_ITS ---
Discharge Plan Prescriptions Prescriptions: No Action ibuprofen 800 mg tablet 800 mg PO Q8H PRN (Reason: pain) Qty: 20 0RF Referrals Follow up/Referrals: Provider,Referral, MD [Primary Care Provider] - See instructions Discharge ED Provider: Jose Breaux General Adult HPI General Stated complaint: abd pain Time Seen by Provider: 12/25/23 17:56 Related Data Previous Rx's Medication Instructions Recorded ibuprofen 800 mg tablet 800 mg PO Q8H PRN pain #20 tabs 10/05/23 Allergies Allergy/AdvReac Type Severity Reaction Status Date / Time No Known Allergies Allergy Verified 10/01/23 15:00 [facility] Disclaimer: The information contained in this section may have been updated after the patient was seen, as this information can be updated by other users. Medical History GBS bacteriuria Urine culture at initial ob visit demonstrated GBS. She will need GBS prophylaxis in labor regardless of RV swab Surgical History No history of previous surgery Family History Other No significant family history Social History Smoking Status: Never smoker alcohol intake: never substance use type: denies use current occupational status: unemployed Travel in the last 8 weeks: None do you feel safe at home: Yes victim of physical abuse: No victim of emotional abuse: No victim of sexual abuse: No would you like helpful sources: No ROS Obtained: Yes Systems reviewed as appropriate & no additional complaints except as documented Physical Exam General General appearance: alert and in no apparent distress Head Head exam: atraumatic and normal inspection Eye Eye exam: Present normal appearance, PERRL and EOMI ENT ENT exam: Present normal exam, normal oropharynx and mucous membranes moist Neck Neck exam: Present normal inspection, full ROM and trachea midline; Absent lymphadenopathy Chest Chest inspection: Present normal inspection and symmetric chest wall rise Respiratory Respiratory exam: Present normal lung sounds bilaterally; Absent accessory muscle use Cardiovascular Cardiovascular exam: Present regular rate, normal rhythm, normal heart sounds, +S1 and +S2 Abdominal Exam Abdominal exam: Present soft and normal bowel sounds; Absent tenderness, guarding or rebound Extremities Exam Extremities exam: Present normal inspection and full ROM Neurological Exam Neurological exam: Present alert, oriented X3 and CN II-XII intact Psychiatric Psychiatric exam: Present normal affect and normal mood Skin Skin exam: Present warm, dry and normal color Lymphatic Lymphatic Findings: no adenopathy Medical Decision Making Lab Data Lab Results 12/25/23 17:00: Urine Color Yellow, Urine Appearance Clear, Urine pH 6.0, Ur S pecific [place] >= 1.030, Urine Protein Negative, Urine Glucose (UA) Negative, Urine Ketones Negative, Urine Blood Negative, Urine Nitrate Negative, Urine Bilirubin Negative, Urine Urobilinogen 0.2, Ur Leukocyte Esterase Negative Orders (Tests/Meds): ORDERS Category Date Time Status UA [Urinalysis and Microscopic] Stat Lab 12/25/23 17:00 Results Medical Decision Narrative: In summary patient is a [age, sex] who presents to the emergency department for evaluation of [complaint]. Patient is [hemodynamically stable/unstable] upon arrival, [febrile/afebrile]. [Unremarkable physical exam, nonfocal exam versus focal remarkable exam]. Differential diagnosis includes [DDx]. Initial workup will be conducted with [hematologic labs, imaging, respiratory swab, describe workup]. Initial interventions include [crystalloid bolus, medications, p.o. challenge, etc.] initial workup reviewed by me [hematologic labs are remarkable for... Imaging remarkable for... Urinalysis remarkable for]. Upon repeat evaluation [patient had acceptable resolution of symptoms, had persistent pain for which additional interventions were conducted (describe interventions), tolerated p.o., was ambulatory, etc.]. Given this [patient is appropriate for discharge at this time and will be discharged with a prescription for... The case was discussed with hospital medicine regarding management and they will admit the patient their service for continued evaluation at this time... Etc.] Places where you can increase complexity: I informally interpreted the patient's chest x-ray or CT read and is remarkable for... Documenting what the awake overnight monitor shows with rate and rhythm Consideration of test but deferring. Ex: I considered chest x-ray on this patient however given that they have no oxygen requirement and are clear to auscultation all lung morton will be deferred. Social determinants of health: Given that patient is undomiciled increases complexity. Given that patient has polysubstance abuse compounds all aspects of care
[2023-12-25 17:57] VITALS: BP 0/0; PULSE 0; RESP 0; TEMP -17.7; TEMP 0
[2023-12-25 18:07] LABS: Bacteria,Urine Trace /lpf; RBC,Urine Occasional #/hpf (0-3)
== END 2023-12-25 17:59 | disposition left against medical advice (07) ==
LOC: ER 17:58
PROVIDERS: Emergency Provider Emergency Medicine
DX: Z53.21 Procedure and treatment not carried out due to patient leaving prior to being seen by health care provider (principal)
CPT/HCPCS: 81001; 99211

== ENCOUNTER 2024-01-17 15:35 | Outpatient (CLI) | payer OTHER, SELFPAY ==
[2024-01-17 17:02] LABS: HCG,Quantitative < 2 mIU/ml (0-5.42)
== END 2024-01-17 23:59 | disposition home or self-care (01) ==
LOC: LAB 15:36
PROVIDERS: Visit Provider Obstetrics & Gynecology
DX: N92.6 Irregular menstruation, unspecified (principal)
CPT/HCPCS: 36415; 84702

== ENCOUNTER 2024-04-14 18:52 | Emergency (ER) | payer OTHER, SELFPAY ==
[2024-04-14 18:53] VITALS: BP 119/82; PULSE 125; RESP 20; TEMP 38.2; O2SAT 98; BMI 30.2
--- NOTE | 2024-04-14 19:07 | ED_ITS ---
<Statement entered by Elida Mead MD - 04/20/24 07:01> I was consulted by the RANDAL, and we discussed the complexity of the problems being addressed. I approved the treatment and management plan for this patient's care in the emergency department, thus performing a substantive portion of the medical decision making. Elida Mead MD, FELIX, FACEP Discharge Plan Disposition Patient Disposition: Home, Self-Care Condition: Good Prescriptions Prescriptions: New sulfamethoxazole-trimethoprim [Bactrim DS] 800-160 mg tablet 1 tab PO BID 14 Days Qty: 28 0RF No Action ibuprofen 800 mg tablet 800 mg PO Q8H PRN (Reason: pain) Qty: 20 0RF Referrals Follow up/Referrals: Provider,Referral, [Primary Care Provider] - See instructions Activity Restrictions/Add. Instructions Additional Instructions/Restrictions: Follow-up with your PCP in 48 hours for recheck or for any worsening signs or symptoms return to ER as needed. Clinical Impressions Clinical Impression: Pyelonephritis Instructions Patient Instructions: DI for Kidney Infection Print Language Print Language: Bengali Discharge ED Provider: Ludwin Cuevas General Adult HPI General Chief complaint: Fever Stated complaint: vomiting, fever Time Seen by Provider: 04/14/24 19:07 History of Present Illness HPI narrative: Patient presents for evaluation of abdominal pain burning with urination nausea vomiting and fever. She denies chest pain shortness of breath hemoptysis hematochezia melena hematemesis hematuria Related Data Previous Rx's ?Medication ?Instructions ?Recorded ibuprofen 800 mg tablet 800 mg PO Q8H PRN pain #20 tabs 10/05/23 sulfamethoxazole 800 1 tab PO BID 14 days #28 tabs 04/14/24 mg-trimethoprim 160 mg tablet (Bactrim DS) Allergies Allergy/AdvReac Type Severity Reaction Status Date / Time No Known Allergies Allergy Verified 10/01/23 15:00 [facility] Disclaimer: The information contained in this section may have been updated after the patient was seen, as this information can be updated by other users. Medical History GBS bacteriuria Urine culture at initial ob visit demonstrated GBS. She will need GBS prophylaxis in labor regardless of RV swab Surgical History No history of previous surgery Family History Other No significant family history Social History Smoking Status: Current every day smoker alcohol intake: never substance use type: denies use current occupational status: unemployed Travel in the last 8 weeks: None do you feel safe at home: Yes victim of physical abuse: No victim of emotional abuse: No victim of sexual abuse: No would you like helpful sources: No ROS Obtained: Yes Systems reviewed as appropriate & no additional complaints except as documented Physical Exam General General appearance: alert and in no apparent distress Respiratory Respiratory exam: Present normal lung sounds bilaterally Cardiovascular Cardiovascular exam: Present regular rate and normal rhythm Abdominal Exam Abdominal exam: Present soft, tenderness (Diffusely tender to palpation without rebound or guarding or rigidity) and normal bowel sounds; Absent guarding or rebound Back Exam Back exam: Present CVA tenderness (L) Neurological Exam Neurological exam: Present alert and oriented X3 Medical Decision Making Medical Records Medical records reviewed: Yes I reviewed the patient's medical records. Geovanny Inquiry Pt receiving controlled substance: No Vital Signs: 04/14/24 18:53 04/14/24 19:25 04/14/24 19:30 Temperature 100.7 F H Temperature Source Oral Pulse Rate 120 H 123 H Pulse Rate [Right] 125 H Respiratory Rate 20 Blood Pressure 116/80 109/66 L Blood Pressure [Left Arm] 119/82 Blood Pressure Mean 83 81 Blood Pressure Mean [Left Arm] 94 Blood Pressure Source Blood Pressure Source [Left Arm] Automatic Cuff Blood Pressure Position 02 Sat by Pulse Oximetry 98 100 99 Oxygen Delivery Method Room Air Room Air Room Air 04/14/24 20:01 04/14/24 20:58 Temperature 98.5 F Temperature Source Oral Pulse Rate 110 H 97 H Pulse Rate [Right] Respiratory Rate 17 Blood Pressure 106/62 L 100/69 L Blood Pressure [Left Arm] Blood Pressure Mean 76 Blood Pressure Mean [Left Arm] Blood Pressure Source Automatic Cuff Blood Pressure Source [Left Arm] Blood Pressure Position Sitting 02 Sat by Pulse Oximetry 99 Oxygen Delivery Method Room Air Lab Data Lab results reviewed: Yes I reviewed the patient's lab results. Lab Results 04/14/24 19:06: Urine Color Yellow, Urine Appearance Clear, Urine pH 6.5, Ur Specific [place] 1.015, Urine Protein 2+, Urine Glucose (UA) Negative, Urine Ketones Negative, Urine Blood 2+, Urine Nitrate Negative, Urine Bilirubin Negative, Urine Urobilinogen >=8.0, Ur Leukocyte Esterase 3+ A, Urine RBC 3-5, Urine WBC Tntc, Ur Squamous Epith Cells 3-5, Ur Transition Epith Cell Occ, Urine Bacteria 2+ 04/14/24 19:25: WBC 5.8, RBC 4.56, Hgb 14.0, Hct 40.1, MCV 87.9, MCH 30.6, MCHC 34.8, RDW 14.2, Plt Count 236, MPV 9.1, Neut % (Auto) 81.1 H, Lymph % (Auto) 11.9, [place] % (Auto) 5.3, Eos % (Auto) 0.4, Baso % (Auto) 1.3, Neut # (Auto) 4.7, Lymph # (Auto) 0.7, [place] # (Auto) 0.3, Eos # (Auto) 0.0, Baso # (Auto) 0.1, Sodium 136, Potassium 3.3 L, Chloride 103, Carbon Dioxide 25, Anion Gap 11.3, B UN 5 L, Creatinine 0.90, Estimated Creat Clear 97, Estimated GFR 77, Est GFR ( Amer) 93, Glucose 116 H, Lactate 1.2, Calcium 9.3, Total Bilirubin 0.7, AST 32, ALT 55, Alkaline Phosphatase 109, Total Protein 8.1, Albumin 4.5, G lobulin 3.6 H, Albumin/Globulin Ratio 1.3, Lipase 92, Serum HCG, Qual Negative 04/14/24 19:25 04/14/24 19:25 Orders (Tests/Meds): ED MEDICATIONS Discontinued Medications Generic Name Dose Route Start Last Admin Trade Name Freq PRN Reason Stop Dose Admin Acetaminophen 1,000 mg 04/14/24 19:31 04/14/24 19:49 Acetaminophen 1,000mg/100ml Vial IV 04/14/24 19:32 1,000 mg ONCE ONE Administration Sodium Chloride 1,000 mls @ 999 mls/hr 04/14/24 19:31 04/14/24 19:49 Sod Chlor 0.9% 1000ml Bag IV 04/14/24 20:31 999 mls/hr .Q1H1M ONE Administration Iopamidol 75 ml 08/13/24 20:09 04/14/24 20:09 Iopamidol-370 (76%);100ml Bottle IV 04/14/24 20:10 75 ml ONCE ONE Administration Ketorolac Tromethamine 15 mg 04/14/24 19:31 04/14/24 19:49 Ketorolac 30mg/Ml Vial IV 04/14/24 19:32 15 mg ONCE ONE Administration Ondansetron HCl 4 mg 04/14/24 19:31 04/14/24 19:49 Ondansetron 4mg/2ml Vial IV 04/14/24 19:32 4 mg ONCE ONE Administration Sodium Chloride 10 ml 04/14/24 20:09 04/14/24 20:09 Sodium Chloride 0.9% 10ml Syr (Rad Only) IV 05/14/24 20:08 10 ml NEEDED PRN Administration Maintain IV Site Trimethoprim/Sulfamethoxazole 1 each 04/14/24 20:40 04/14/24 20:54 Sulfa/Trimethoprim 1 Tablet PO 04/14/24 20:41 1 each ONCE ONE Administration ORDERS Category Date Time Status CT abdomen pelvis w con Stat Cat Scan 04/14/24 19:31 Completed CBC w/Auto Diff [Complete Blood Count Auto Diff] Stat Lab 04/14/24 19:25 Completed CMP [Comprehensive Metabolic Panel] Stat Lab 04/14/24 19:25 Completed HCG Qualitative, Serum Stat Lab 04/14/24 19:25 Completed Lactic Acid Stat Lab 04/14/24 19:25 Completed Lipase Stat Lab 04/14/24 19:25 Completed UA [Urinalysis and Microscopic] Stat Lab 04/14/24 19:06 Completed Blood Culture Stat Micro 04/14/24 19:25 Received Urine Culture Stat Micro 04/14/24 19:06 Received Medical Decision Narrative: In summary patient is a 22-year-old female who presents to the emergency department for evaluation of abdominal pain dysuria nausea vomiting and fever. Patient is normotensive but tachycardic on arrival upon arrival, with a fever of 100.7. Physical exam is remarkable for diffuse abdominal tenderness and left CVA tenderness to percussion without rebound or guarding or rigidity.. Differential diagnosis includes UTI versus pyelonephritis versus gastroenteritis versus kidney stone etc. Initial workup will be conducted with hematologic labs urinalysis CT scan abdomen pelvis serum hCG. Initial interventions include crystalloid bolus Toradol Tylenol. Initial workup reviewed by me shows that her hematologic labs are nonactionable urinalysis shows urinary tract infection and my informal interpretation of her CT scan abdomen pelvis shows stranding around left kidney consistent with pyelonephritis. Upon repeat evaluation patient actually had significant improvement with initial intervention including heart rate of 97 and fever defervesced to 98.5. Given this patient is appropriate for discharge with a prescription for Bactrim and first dose given here. Course to be 14 days with close follow-up with the PCP and strict return precautions Critical Care Critical Care Time Critical Care Time: No
[2024-04-14 19:25] VITALS: BP 116/80; PULSE 120; O2SAT 100
[2024-04-14 19:30] VITALS: BP 109/66; PULSE 123; O2SAT 99
--- NOTE | 2024-04-14 19:31 | CT_ITS ---
PROCEDURE INFORMATION: Exam: CT Abdomen And Pelvis With Contrast Exam date and time: 04/14/2024 8:08 PM Age: 23 years old Clinical indication: Fever; Abdominal pain; Additional info: Fever abdominal pain TECHNIQUE: Imaging protocol: Computed tomography of the abdomen and pelvis with contrast. Radiation optimization: All CT scans at this facility use at least one of these dose optimization techniques: automated exposure control; mA and/or kV adjustment per patient size (includes targeted exams where dose is matched to clinical indication); or iterative reconstruction. Contrast material: ISOVUE; Contrast volume: 75 ml; Contrast route: IV; COMPARISON: US OB BIOPHYSICAL PROFILE 10/01/2023 3:46 PM FINDINGS: Lungs: The visualized lung bases demonstrate no focal infiltrates. Liver: Mild diffuse hepatic steatosis is identified. Gallbladder and biliary ducts: Tiny gallstones noted. Pancreas: The pancreas is normal. Spleen: The spleen is normal. Adrenal glands: The adrenal glands appear within normal limits. Kidneys and ureters: Focal wedge-shaped hypoenhancement left kidney mid zone consistent with acute pyelonephritis. Stomach and bowel: The stomach appears within normal limits. No wall thickening or inflammatory change. Appendix: No evidence of appendicitis. Intraperitoneal space: No free air. No evidence for focal fluid collection or ascites. No evidence for omental thickening. Vasculature: Unremarkable. No abdominal aortic aneurysm. Lymph nodes: Unremarkable. No pathologically enlarged lymph nodes are identified. Urinary bladder: Bladder wall thickening with edematous appearance and hyperenhancement of the mucosa. Findings consistent with cystitis. Reproductive: The uterus and adnexal structures appear normal. Bones/joints: Unremarkable. No acute fracture. Soft tissues: Unremarkable. IMPRESSION: 1. Focal wedge-shaped hypoenhancement left kidney mid zone consistent with acute pyelonephritis. No abscess. No hydronephrosis. 2. Tiny gallstones noted. 3. Bladder wall thickening with edematous appearance and hyperenhancement of the mucosa. Findings consistent with cystitis.
[2024-04-14 19:36] LABS: Microscopic, Urine URINE MICROSCOPIC (MICROSCOPIC)
[2024-04-14 19:43] LABS: Basophils # 0.1 K/mm3 (0-0.2); Basophils % 1.3 % (0.1-2.0); Eosinophils % 0.4 % (0.1-12.0); Hematocrit 40.1 % (37.0-47.0); Lymphocytes # 0.7 K/mm3 (0.7-4.5); Lymphocytes % 11.9 % (10-50); Mean Corpuscular HGB Conc 34.8 g/dL (31.8-35.4); Mean Corpuscular Hemoglobin 30.6 pg (27.0-31.2); Mean Corpuscular Volume 87.9 fl (81-99); Mean Platelet Volume 9.1 fl (7.4-10.4); Monocytes # 0.3 K/mm3 (0.1-1.0); Monocytes % 5.3 % (1.7-9.3); Neutrophils # 4.7 K/mm3 (1.8-7.8); Neutrophils % 81.1 % (37.0-80.0); Platelet Count 236 K/mm3 (142-424); Red Blood Count 4.56 M/mm3 (4.20-5.40); Red Cell Distribution Width 14.2 % (11.5-17.5); White Blood Count 5.8 K/mm3 (4.8-10.8)
[2024-04-14 19:47] LABS: Albumin Level 4.5 g/dl (3.5-5.0); Chloride 103 mmol/L (98-107); Sodium 136 mmol/L (136-145)
[2024-04-14 19:48] LABS: Potassium 3.3 mmoL/L (3.5-5.1)
[2024-04-14] MEDS: ONDANSETRON 4MG/2ML VIAL 4 MG IV (19:49)
[2024-04-14] MEDS: ACETAMINOPHEN 1,000MG/100ML VIAL 1000 MG IV (19:49)
[2024-04-14] MEDS: KETOROLAC 30MG/ML VIAL 15 MG IV (19:49)
[2024-04-14] MEDS: 0.9 % SODIUM CHLORIDE 1000ML 1,000 ML 999 ML IV (19:49)
[2024-04-14 19:50] LABS: Alanine Aminotransferase 55 U/L (12-78); Albumin/Globulin Ratio 1.3 (1.1-1.8); Alkaline Phosphatase 109 U/L (38-126); Anion Gap 11.3 mEq/L (5-15); Aspartate Amino Transferase 32 U/L (14-36); Bilirubin,Total 0.7 mg/dl (0.2-1.3); Blood Urea Nitrogen 5 mg/dl (7-17); Carbon Dioxide 25 mmol/L (22.0-30.0); Creatinine Clearance Estimated 97 mL/min (50-200); Estimated Glomerular Filt Rate 77 ml/min (>60); GFR (African American) 93 ML/MIN (>60); Globulin 3.6 g/dL (1.3-3.2); Lipase 92 U/L (23-300); Total Protein,Serum 8.1 g/dl (6.3-8.2)
[2024-04-14 19:51] LABS: Calcium 9.3 mg/dl (8.4-10.2); Glucose 116 mg/dl (74-100)
[2024-04-14 19:52] LABS: Appearance,Urine CLEAR (Clear); Bilirubin,Urine Negative (Negative); Blood, Urine 2+ (Negative); Color,Urine YELLOW (Yellow); Glucose,Urine (UA) Negative (Negative); Ketones,Urine Negative (Negative); Leukocyte Esterase,Urine 3+ (Negative); Nitrate,Urine Negative (Negative); PH,Urine 6.5 (5.0-8.5); Protein,Urine 2+ (Negative); Specific Gravity, Urine 1.015 (1.005-1.030); Urobilinogen,Urine >=8.0 EU/dl (0.2)
[2024-04-14 19:55] LABS: HCG Qualitative, Serum Negative (Negative)
[2024-04-14 19:58] LABS: Lactic Acid 1.2 mmol/L (0.7-2.1)
[2024-04-14 20:01] VITALS: BP 106/62; PULSE 110; O2SAT 99
[2024-04-14] MEDS: IOPAMIDOL-370 (76%);100ML BOTTLE 75 ML IV (20:09)
[2024-04-14] MEDS: SODIUM CHLORIDE 0.9% 10ML SYR (RAD ONLY) 10 ML IV (20:09)
[2024-04-14 20:32] LABS: WBC,Urine TNTC #/hpf (0-3)
[2024-04-14 20:33] LABS: Bacteria,Urine 2+ /lpf; Transitional Epi Cells,Urine OCC #/lpf (0-3)
[2024-04-14] MEDS: SULFA/TRIMETHOPRIM 1 TABLET 1 EACH PO (20:54)
[2024-04-14 20:58] VITALS: BP 100/69; PULSE 97; RESP 17; TEMP 36.9; O2SAT 96
--- NOTE | 2024-04-17 09:54 | PC.NURSE ---
urine culture discussed with , pt dc with bactrim, ntd
== END 2024-04-14 21:04 | disposition home or self-care (01) ==
PROVIDERS: Emergency Provider Physician Assistant
DX: N10 Acute pyelonephritis (principal); B96.89 Other specified bacterial agents as the cause of diseases classified elsewhere; R10.9 Unspecified abdominal pain; R30.0 Dysuria; R11.2 Nausea with vomiting, unspecified; R50.9 Fever, unspecified
CPT/HCPCS: 74177; 80053; 81001; 83605; 83690; 84703; 85025; 87040; 87077; 87086; 87088; 96361; 96374; 96375; 99285; J0131; J1885; J2405; Q9967

== ENCOUNTER 2025-01-05 11:02 | Outpatient (CLI) | payer OTHER, SELFPAY ==
[2025-01-05 12:29] LABS: HCG,Quantitative 381 mIU/ml (0-5.42)
[2025-01-05 12:57] LABS: HIV Combo NEGATIVE (Negative)
[2025-01-05 13:04] LABS: Hepatitis C Ab Qual. W/ RFX NEGATIVE (Negative)
== END 2025-01-05 23:59 | disposition home or self-care (01) ==
PROVIDERS: Visit Provider Obstetrics & Gynecology
DX: Z01.419 Encounter for gynecological examination (general) (routine) without abnormal findings (principal); Z32.01 Encounter for pregnancy test, result positive; Z11.3 Encounter for screening for infections with a predominantly sexual mode of transmission
CPT/HCPCS: 36415; 84702; 86803; 87389; 87491; 87591